=== PATIENT | female | born 1990 | race Caucasian/White ===

== ENCOUNTER 2021-07-20 08:02 | Emergency (ER) | payer OTHER, SELFPAY ==
[2021-07-20 08:11] VITALS: BP 116/84; PULSE 77; RESP 16; TEMP 36.5; O2SAT 99
--- NOTE | 2021-07-20 08:41 | ED.URI ---
HPI - URI/Sore Throat General Chief Complaint: Upper Respiratory Infection Stated Complaint: sore throat/swollen left gland Source: patient and RN notes reviewed Limitations: no limitations History of Present Illness HPI Narrative: The vaccinated patient, previously healthy, presents with sore throat. 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 She has 1/2-week history of sore throat, that was preceded by her third Covid vaccination two days before that, and she had an active negative rapid Covid test 2 days ago on Sunday [so patient declines repeat]. No fever, cough, earache; no loss of taste/smell, vomiting/diarrhea, S OB, rash, CP. Symptoms are mild worse with eating associated with adenopathy, she requests antibiotic for her upcoming trip. She reports a family [not an individual ]history of penicillin allergy Related Data Home Medications Medication Instructions Recorded Confirmed Iud 09/27/19 levothyroxine 75 mcg PO DAILY 09/27/19 07/20/21 lorazepam 0.5 mg PO TID PRN 09/27/19 07/20/21 sertraline 100 mg PO DAILY 09/27/19 07/20/21 Allergies Allergy/AdvReac Type Severity Reaction Status Date / Time No Known Allergies Allergy Verified 07/20/21 08:12 Review of Systems Review of Systems: General/Constitutional: No weight loss,fever Eyes: N0: Redness,discharge Ears/Nose/Throat: No: Epistaxis,ear discharge Respiratory: Denies: Hemoptysis Gastrointestinal: No Vomiting, Bleeding-rectal Skin: No Lumps, eruption Neurologic: No Focal Weakness,Sz Hematologic: Denies: Petechiae/Purpura Psychiatric: No: Suicida ideationl All Other Systems: Reviewed and Negative PMFSH Family History Family History (Updated 11/14/18 @ 12:31 by DOCTOR UNKNOWN) Grandparent Family history of mental disorder Depression Family history of cardiovascular disease Mother Depression Family history of malignant neoplasm of skin Father Hypertension Social History Social History Smoking status: Never smoker Second hand tobacco smoke exposure: No Alcohol intake: current Comments At time of signature, agree with nursing past medical, surgical, social and family history. There is no relevant family history pertinent to the presenting complaint Exam Narrative: General Appearance: Well appearing, Well nourished EYE: PERRLA, Conjunctiva clear Ears: Auditory canal normal, TM normal Nose: Rhinorrhea, Mucousal erythema Mouth/Throat: MM moist, Uvula midline, Pharyngeal erythema Neck: Supple, L>>R adenopathy Respiratory: No respiratory distress, Breath sounds equal, Clear to auscultation Cardiovascular: RRR, No JVD Musculoskeletal: Non tender, Normal strength Skin: Warm, Dry Neurological: A&O x3, CN II-XII intact Psychiatric: Normal mood, Normal affect Course Vital Signs Vital signs: Vital Signs Temperature 97.7 F 07/20/21 08:11 Pulse Rate 77 07/20/21 08:11 Respiratory Rate 16 07/20/21 08:11 Blood Pressure 116/84 07/20/21 08:11 Pulse Oximetry 99 07/20/21 08:11 Temperature 97.7 F 07/20/21 08:11 Pulse Rate 77 07/20/21 08:11 Respiratory Rate 16 07/20/21 08:11 Blood Pressure 116/84 07/20/21 08:11 Pulse Oximetry 99 07/20/21 08:11 MDM - URI/Sore Throat Lab Data Labs: Strep Screen Presumptive Negative *(Reference Range: Negative)* Discharge Plan Discharge Clinical Impression: Odynophagia Patient Disposition: Home, Self-Care Condition: Stable Instructions: Pharyngitis (ED) Prescriptions: New azithromycin 250 mg tablet See Rx Instructions .ROUTE .COMPLEX Qty: 6 RF: 0 lidocaine HCl [Lidocaine Viscous] 2 % solution 5 ml MUCOUS MEM QID PRN (Reason: pain) Qty: 100 RF: 0 No Action sertraline 100 mg tablet 100 mg PO DAILY RF: 0 levothyroxine 75 mcg tablet 75 mcg PO DAILY RF: 0 lorazepam 0.5 mg tablet
== END 2021-07-20 08:45 | disposition home or self-care (01) ==
PROVIDERS: Emergency Provider Emergency Medicine; PCP Nurse Practitioner Family
DX: R13.10 Dysphagia, unspecified (principal); E03.9 Hypothyroidism, unspecified; E28.2 Polycystic ovarian syndrome; F41.9 Anxiety disorder, unspecified; F32.9 Major depressive disorder, single episode, unspecified
CPT/HCPCS: 87081; 87880; 99213; G0463

== ENCOUNTER 2025-07-16 11:55 | Emergency (ER) | payer OTHER, SELFPAY ==
--- NOTE | ~2025-07-16 | US_ITS ---
US abdomen limited Indication: R Flank/lower abdominal pain, Eval Appendicitis Comparison: None Technique: Tran-scale and color Doppler images were obtained. Findings: Appendix not identified. No dilated bowel loops or free fluid IMPRESSION: The appendix is not identified Reviewed, dictated and finalized at location P.
--- NOTE | ~2025-07-16 | US_ITS ---
Examination: Ultrasound of the retroperitoneum including kidneys and bladder. Clinical History: R Flank/lower abdominal pain, eval hydro/kidney st . Comparison: None available. Findings: Right kidney: 12 cm. Normal echogenicity. No collecting system dilatation. No shadowing calculi. Left kidney: 12 cm. Normal echogenicity. No collecting system dilatation. No shadowing calculi. Urinary bladder: No wall thickening or focal abnormality. IMPRESSION: 1. No acute findings. Reviewed, dictated and finalized at location R. IMPRESSION: 1. No acute findings.
--- NOTE | ~2025-07-16 | US_ITS ---
EXAMINATION: US OB <= 14 weeks fetus DATE: 07/16/2025 14:09 INDICATION: Right lower quadrant pain. TECHNIQUE: Real-time transabdominal and transvaginal obstetric ultrasound. FINDINGS: The uterus measures 14.1 x 6.0 x 8.0. There is an intrauterine gestational sac, with pole identified. The crown rump length measures 4.11 cm, which correlates with a estimated gestational age of 11 weeks and 0 days. heart tones are identified measuring 171. Right ovary measures 3.7 x 2.1 x 3.2 cm. Color Doppler flow identified in the right ovary. There is a 1.4 x 0.8 x 1.2 cm anechoic structure in the right ovary possibly a dominant follicle. Left ovary measures 3.4 x 2.0 x 3.9 cm. Color Doppler flow identified in the left ovary. IMPRESSION: 1. Gallbladder angiogram with an estimated gestational age based on the current sonographic measurements of 11 weeks, 0 days 2. There is a 1.4 cm probable dominant follicle in the right ovary. 3. Otherwise, unremarkable study. If symptoms persist or worsen, consider a short-term follow-up study or additional imaging for further assessment. Reviewed, dictated and finalized at location Q. IMPRESSION: 1. Gallbladder angiogram with an estimated gestational age based on t he current sonographic measurements of 11 weeks, 0 days 2. There is a 1.4 cm probable dominant follicle in the right ovary. 3. Otherwise, unremarkable study. If symptoms persist or worsen, consider a short-term follow-up study or additio nal imaging for further assessment.
[2025-07-16 11:58] VITALS: BP 130/63; PULSE 91; RESP 17; TEMP 36.6; O2SAT 98
--- OUTSIDE RECORDS SUMMARY | 2025-07-16 12:04 | XMS_ITS | Clinical Summary ---
Author Organization [facility] Address [address] [place] [phone] Phone Care Team Providers Care Heavy Threader Name Role Phone Teodora Cuevas MD Primary Care Provider [phone] Allergies No known active allergies Medications fluocinonide (LIDEX) 0.05 % external solution Apply Twice a day to the scalp as needed 60 mL 08/05/20 21 Active levonorgestreL (Mirena) IUD Mirena 20 mcg/24 hours (6 yrs) 52 mg intrauterine device 04/06/20 17 Active azelastine 205.5 mcg (0.15 %) spray,non-aerosol azelastine 205.5 mcg (0.15 %) nasal spray USE 2 SPRAY(S) TWICE DAILY Active levothyroxine (SYNTHROID) 75 mcg tabletIndications: Other specified hypothyroidism Take 1 tablet (75 mcg total) by mouth daily 30 tablet 11/23/19 22 Active metFORMIN XR (GLUCOPHAGE XR) 500 mg 24 hr tabletIndications: PCOS (polycystic ovarian syndrome) Take 1 tablet (500 mg total) by mouth daily with breakfast Use as directed by MD with step-up dosaging 120 tablet 11/23/19 22 Active Rybelsus 3 mg tablet Not for DM, only for weight loss 07/24/20 22 Active tretinoin (RETIN-A) 0.05 % creamIndications:A cne, unspecified acne type Apply pea-sized amount to face at night 45 g 07/04/20 24 Active clindamycin (CLEOCIN T) 1 % lotion Apply to face daily in AM 60 mL 11 07/04/20 24 Active triamcinolone (KENALOG) 0.1 % ointmentIndication s:Arthropod bite, sequela Apply to itchy areas on body twice a day as needed. Do not use on face 180 g 3 07/04/20 24 Active spironolactone (ALDACTONE) 50 mg tabletIndications: Acne, unspecified acne type Take 2 tablets (100 mg total) by mouth nightly 60 tablet 07/14/20 24 Active LORazepam (ATIVAN) 0.5 mg tablet Take 1 tablet (0.5 mg total) by mouth daily as needed for anxiety 30 tablet 09/04/20 24 Active sertraline (ZOLOFT) 100 mg tablet Take 1 tablet (100 mg total) by mouth daily 30 tablet 02/28/20 25 Active Active Problems Problem Noted Date Diagnosed Date Panic attacks 09/21/2022 Sterilization 06/28/2022 Overview (06/28/2022): Added automatically from request for surgery [id number] Excessive daytime sleepiness 11/15/2020 ANSHUL (generalized anxiety disorder) 09/27/2020 Seasonal affective disorder 09/27/2020 Tympanostomy tube check 05/07/2018 Dysfunction of left eustachian tube 01/29/2018 Chronic tonsillitis 01/07/2018 Conductive hearing loss, unilateral 01/07/2018 History of gestational diabetes 11/28/2017 Acquired hypothyroidism 11/28/2017 Immunizations Immunization Administration Dates Next Due Influenza, Quadrivalent, Spl it, Preservative Free, Intramuscular 11/28/2017 Td, adsorbed 02/12/2013 Surgical History Surgery Date Site/Laterality Comments EAR TUBE REMOVAL 10/15/1998 - 10/14/1999 Bilateral WISDOM TOOTH EXTRACTION 10/15/2008 - 10/14/2009 Bilateral WISDOM TOOTH EXTRACTION Oral Surgery Tooth Extraction Stone Tooth - (Added by TW Conv) TYMPANOSTOMY TUBE PLACEMENT Ear Pressure Equalization Tube, Insertion, Bilaterally - (Added by TW Conv) TONSILLECTOMY 10/15/2017 - 10/14/2018 TONSILECTOMY, ADENOIDECTOMY, BILATERAL MYRINGOTOMY AND TUBES Medical History Medical History Date Comments Anxiety Thyroid disease Personal history of other di seases of the respiratory system History of sore throat - (Ad ded by TW Conv) Hypertrophy of tonsils Swelling of tonsil - (Added by TW Conv) Disorder of thyroid Thyroid trou ble - (Added by TW Conv) Family history of thyroid problem Family History Medical History Relation Name Comments Hypertension Father Heart disease Maternal Grandfather Obesity Maternal Grandmother Infertile Mother Thyroid disease Mother Glaucoma Paternal Grandmother Relation Name Status Comments Father Alive Maternal Grandfather Maternal Grandmother Mother Alive Paternal Grandmother Social History Tobacco Use Types Packs/Day Years Used Date Smoking Tobacco: Never Smokeless Tobacco: Never Alcohol Use Standard Drinks/Week Comments Yes 2 (1 standard drink = 0.6 oz pur e alcohol) AUDIT-C Answer Date Recorded Frequency of Alcohol Consumption Not on file 05/04/2021 Q2: How many drinks containi ng alcohol do you have on a typical day when you are drinking? 1 or 2 05/04/2021 Frequency of Binge Drinking Not on file 04/15 Comments No Sex and Gender Information Value Date Recorded Sex Assigned at Not on file Legal Sex Female 6:10 PM CLINICAL PSYCHIATRIST Gender Identity Female 09/08/2020 8:35 AM CLINICAL PSYCHIATRIST Sexual Orientation Straight 09/08/2020 8: 35 AM CLINICAL PSYCHIATRIST Obstetrics History Para Term AB IAB SAB Ectopic Multiple Livin g Live Births 1 1 1 1 1 Date Outcome GA Total Labor Labor/2nd/3rd Weight Sex Type Anes PTL Prudence A1 A5 Name Clin 2016 2.722 kg (6 lb) M Living Comments G1 2016 IOL for GDM and HTN Last Filed Vital Signs Vital Sign Reading Time Taken Comments Blood Pressure 116/60 06/27/2022 9:05 AM CDT Pulse 78 01/29/2018 8:42 AM CDT Temperature 36.9 C (98.5 F) 12/25/2017 1:46 PM CDT Respiratory Rate - - Oxygen Saturation 98% 12/25/2017 1:46 PM CDT Inhaled Oxygen Concentration - - Weight 114.3 kg (252 lb) 08/28/2022 12:36 PM CLINICAL PSYCHIATRIST Height 160 cm (5' 3) 12/21/2021 12:59 PM CLINICAL PSYCHIATRIST Body Mass Index 44.64 12/21/2021 12:59 PM CLINICAL PSYCHIATRIST Plan of Treatment Health Maintenance Due Date Last Done Comments Hepatitis C Screening 1991 Varicella Vaccines (1 of 2 - 13+ 2-dose series) 2004 Hepatitis B Screening 2009 HPV Vaccines (1 - 3-dose SCD M series) 2018 Cervical Cancer Screening 11/12/2018 11/12/2017 Depression Screening 12/25/2018 12/25/2017, 11/28/2017 Regular Well Visit/Exam 18-64 12/21/2022, 11/28/2017 Covid-19 Vaccine (3 - 2024-2 6 season) 2025 11/25/2020, 11/04/2020 Influenza Vaccine (#1) 2025 11/28/2017 DTaP/Tdap/Td Vaccine (2 - Td or Tdap) 02/06/2027 02/06/2017, 02/12/2013 Pneumococcal vaccine <65 Aged Out No longer eligible based on patient's age to complete this topic Procedures Procedure Name Priority Date/Time Associated Diagnosis Comments PAP SMEAR WITH HPV Routine 11/12/2017 from Last 3 Months or Most Recently Relevant to Health Maintenance Results * PAP SMEAR WITH HPV (11/12/2017) Pap smear Normal Historical Provider MD HEALTH MAINTENANCE Final Result from Last 3 Months or Most Recently Relevant to Health Maintenance Insurance EMPLOYEES [employer] HMO/PPO Address: [facility] [address] [place] [address] [facility] [employer]YEES [employer] HMO/PPO Address: [address] [address] [employer] [facility] [employer]/PPO Address: [id number] [place] [address] Care Teams Heavy Threader Relationship Specialty Start Date End Date Teodora Cuevas MD [address] [place] [address] PCP - General Family Medicine 09/06/22
--- OUTSIDE RECORDS SUMMARY | 2025-07-16 12:04 | XMS_ITS | Clinical Summary ---
Author Organization [facility] Care Team Providers Care Angular Developer Name Role Phone Unavailable Primary Care Provider Unavailabl e Allergies No known active allergies Medications Etonogestrel-Et hinyl Estradiol (NUVARING) 0.12-0.015 MG/24HR RING by Vaginal route every 21 days. Active Multiple Vitamins-Minera ls (WOMENS ONE DAILY PO) Take by mouth. Active Cholecalciferol (VITAMIN D PO) Take by mouth. Active omeprazole (PRILOSEC) 40 MG CAPSULE DELAYED RELEASE Take by mouth. Active escitalopram (LEXAPRO) 10 MG Tablet Take by mouth. Active Active Problems Problem Noted Date Diagnosed Date ANSHUL (generalized anxiety disorder) Gastritis Immunizations Immunization Administration Dates Next Due TD VACCINE 02/12/2013 Social History Tobacco Use Types Packs/Day Years Used Date Smoking Tobacco: Never Assessed Comments Unknown Sex and Gender Information Value Date Recorded Sex Assigned at Not on file Legal Sex Female 8:32 PM CDT Gender Identity Not on file Sexual Orientation Not on file Plan of Treatment Health Maintenance Due Date Last Done Comments Hepatitis C Virus (HCV) Screening 1991 TdaP Immunization 1991 Hepatitis B Immunization (1 of 3 - 19+ 3-dose series) 2010 Pap Smear 2012 Human Papillomavirus (HPV) Immunization (1 - 3-dose SCDM series) 2018 Cervical Cancer Screening (CCS) 2021 HPV/Cotest 2021 Influenza Immunization (#1) 2025 SARS-COV-2 Immunization (2023- season) 2025 Respiratory Syncytial Virus (RSV) Immunization (Adult) (1 - 1-dose 75+ series) 2066 DTaP/Tdap/Td Immunization Discontinued 02/12/2013 Meningococcal Immunization (ACWY) Aged Out No longer eligible based on patient's age to complete this topic Pneumococcal Immunization Combined Aged Out No longer eligible based on patient's age to complete this topic Rotavirus Immunization Aged Out No lo nger eligible based on patient's age to complete this topic
--- OUTSIDE RECORDS SUMMARY | 2025-07-16 12:04 | XMS_ITS | Clinical Summary ---
Author Organization [facility] Address [address] [place] [address] Care Team Providers Care Clearing Hand Name Role Phone Teodora Cuevas MD Primary Care Provider [phone] Allergies No known active allergies Medications sertraline (ZOLOFT) 25 MG tablet Take 3 tablets (75 mg total) by mouth daily. Active metFORMIN ER, MOD, (GLUMETZA) 500 MG TABLET SR 24 HR 24 hr tablet Take 1 tablet (500 mg total) by mouth daily. Active levothyroxine (SYNTHROID) 75 MCG tablet Take 1 tablet (75 mcg total) by mouth every morning. Active spironolactone (ALDACTONE) 100 MG tablet Take 1 tablet (100 mg total) by mouth daily. Active pantoprazole EC (PROTONIX) 40 MG tablet Take 1 tablet (40 mg total) by mouth daily. 14 tablet 08/02/2024 Active lidocaine viscous (XYLOCAINE) 2 % solution Take 5 mLs by mouth every 4 (four) hours as needed for Pain. 100 mL 08/02/2024 Active Social History Tobacco Use Types Packs/Day Years Used Date Smoking Tobacco: Never Smokeless Tobacco: Never Tobacco Cessation:Counseling Given: Not Answered Alcohol Use Standard Drinks/Week Comments Not Currently 0 (1 standard drink = 0.6 oz pur e alcohol) Comments No Sex and Gender Information Value Date Recorded Sex Assigned at Not on file Legal Sex Female 7:49 PM CDT Gender Identity Not on file Sexual Orientation Not on file Last Filed Vital Signs Vital Sign Reading Time Taken Comments Blood Pressure 140/78 08/02/2024 7:59 PM CDT Pulse 89 08/02/2024 7:59 PM CDT Temperature 36.5 C (97.7 F) 08/02/2024 7:59 PM CDT Respiratory Rate 16 08/02/2024 7:59 PM CDT Oxygen Saturation 100% 08/02/2024 7:59 PM CDT Inhaled Oxygen Concentration - - Weight 120.4 kg (265 lb 6.4 oz) 08/02/2024 7:59 PM CDT Height 160 cm (5' 3) 08/02/2024 7:59 PM CDT Body Mass Index 47.01 08/02/2024 7:59 PM CDT Plan of Treatment Health Maintenance Due Date Last Done Comments Annual Physical 1994 Hepatitis C 2009 Hepatitis B Vaccines (1 of 3 - 19+ 3-dose series) 2010 HPV Vaccines (1 - 3-dose SCDM series) 2018 Cervical Cancer Screening Pap with HPV Testing (Age 30 to 64) Every 5 Years 2021 COVID-19 Vaccine ( season) 2025 07/28/2023, 07/14/2021, 11/25/2020, Additional history exists Influenza Adult (#1) 2025 07/28/2023, 07/19/2022, 11/28/2017 Cervical Cancer Screening Pap Smear (Age 30 to 64) Every 3 Years 08/10/2026 08/10/2023 Cervical Cancer Screening with HPV 08/10/2026 DTaP, Tdap and Td Vaccines (2 - Td or Tdap) 02/06/2027 02/06/2017, 02/12/2013 Meningococcal B Vaccine Aged Out No l onger eligible based on patient's age to complete this topic Meningococcal Vaccine Aged Out No lisa carolyn eligible based on patient's age to complete this topic Pneumococcal Vaccine: Pediatrics (0 to 5 Years) and At-Risk Patients (6 to 49 Years) Aged Out No longer eligible based on patient's age to complete this topic RSV Immunizations Under 20 Months Aged Out No longer eligible based on patient's age to complete this topic Insurance [facility] Care Teams Clearing Hand Relationship Specialty Start Date End Date Teodora Cuevas MD [address] [place] [address] PCP - General FAMILY PRACTICE 08/02/24
--- OUTSIDE RECORDS SUMMARY | 2025-07-16 12:05 | XMS_ITS | Clinical Summary ---
Author Organization [facility] Address [address] [place] [phone] Phone Care Team Providers Care Senior Investigator Name Role Phone Unavailable Primary Care Provider Unavailabl e Social History Tobacco Use Types Packs/Day Years Used Date Smoking Tobacco: Never Assessed Comments Unknown Sex and Gender Information Value Date Recorded Sex Assigned at Not on file Legal Sex Female 8:26 AM CDT Gender Identity Not on file Sexual Orientation Not on file Plan of Treatment Health Maintenance Due Date Last Done Comments DTAP/TDAP/TD VACCINES (1 - Tdap) 2010 HEPATITIS B VACCINES (1 of 3 - 19+ 3-dose series) 10/16 HPV/Cotest (21-29) 2012 HPV VACCINES (1 - 3-dose SCDM series) 2018 CERVICAL CANCER SCREENING 2021 HPV/Cotest (30-65) 2021 PAP SMEAR 2021 INFLUENZA VACCINE (#1) 2025
[2025-07-16 12:10] VITALS: BP 130/63; PULSE 85; RESP 14; TEMP 36.6; O2SAT 97
[2025-07-16 12:24] LABS: Hematocrit 36.3 % (37.0-47.0); Hemoglobin 11.7 g/dL (12.0-15.0); Immature Granulocyte Percent A 0.6 % (0-0.5); Lymphocytes Absolute Auto 2.23 K/mm3 (0.9-3.2); Mean Corpuscular HGB Conc 32.2 g/dl (32-36); Mean Corpuscular Hemoglobin 28.1 pg (26-34); Mean Corpuscular Volume 87.3 fl (80-100); Nucleated Red Blood Cells Absolute Auto 0.000 K/mm3 (0.0-0.012); Nucleated Red Blood Cells Perc 0.0 % (0.0-0.2); Platelet Count Result 288 k/mm3 (150-375); Red Blood Count 4.16 M/mm3 (4.2-5.4); White Blood Count 11.5 K/mm3 (4.5-10.0)
--- OUTSIDE RECORDS SUMMARY | 2025-07-16 12:39 | XMS_ITS | Clinical Summary ---
Author Organization [facility] Address [address] [place] [address] Care Team Providers Care Stock Preparer Name Role Phone Teodora Cuevas MD Primary Care Provider [phone] Allergies No known active allergies Medications sertraline [...] patient's age to complete this topic Insurance [facility] Care Teams Stock Preparer Relationship Specialty Start Date End Date Teodora Cuevas MD [address] [place] [address] PCP - General FAMILY PRACTICE 08/02/24
--- OUTSIDE RECORDS SUMMARY | 2025-07-16 12:39 | XMS_ITS | Clinical Summary ---
Author Organization [facility] Address [address] [place] [phone] Phone Care Team Providers Care Plasma Specialist Name Role Phone Unavailable Primary Care Provider [...]
--- OUTSIDE RECORDS SUMMARY | 2025-07-16 12:39 | XMS_ITS | Clinical Summary ---
Author Organization [facility] Address [address] [place] [phone] Phone Care Team Providers Care Compliance Clerk Name Role Phone Teodora Cuevas MD Primary Care Provider [phone] Allergies No known active allergies Medications fluocinonide [...] (06/28/2022): Added automatically from request for surgery [id number] Excessive daytime sleepiness 11/15/2020 ANSHUL (generalized anxiety [...] WISDOM TOOTH EXTRACTION Oral Surgery Tooth Extraction [place] Tooth - (Added by TW Conv) TYMPANOSTOMY [...] on file Legal Sex Female 6:10 PM LAWN MOWER OPERATOR Gender Identity Female 09/08/2020 8:35 AM LAWN MOWER OPERATOR Sexual Orientation Straight 09/08/2020 8: 35 AM LAWN MOWER OPERATOR Obstetrics History Para Term AB IAB SAB [...] 114.3 kg (252 lb) 08/28/2022 12:36 PM LAWN MOWER OPERATOR Height 160 cm (5' 3) 12/21/2021 12:59 PM LAWN MOWER OPERATOR Body Mass Index 44.64 12/21/2021 12:59 PM LAWN MOWER OPERATOR Plan of Treatment Health Maintenance Due Date [...] Recently Relevant to Health Maintenance Insurance EMPLOYEES [employer] Care Teams Compliance Clerk Relationship Specialty Start Date End Date Teodora Cuevas MD [address] [place] [address] PCP - General Family Medicine 09/06/22
--- OUTSIDE RECORDS SUMMARY | 2025-07-16 12:39 | XMS_ITS | Clinical Summary ---
Author Organization [facility] Care Team Providers Care C D Still Operator Name Role Phone Unavailable Primary Care Provider [...]
[2025-07-16 12:43] LABS: Alanine Aminotransferase 18 U/L (6-35); Albumin Level 4.2 g/dL (3.5-5.1); Alkaline Phosphatase 81 U/L (38-126); Anion Gap 10 mmol/L (4-12); Aspartate Amino Transferase 25 U/L (14-36); Bilirubin,Total 0.2 mg/dL (0.2-1.3); Blood Urea Nitrogen 6 mg/dL (7-17); Calcium 9.3 mg/dL (8.4-10.2); Carbon Dioxide 23 mmol/L (22-30); Chloride 103 mmol/L (98-107); Estimated CRCL calculation 160 ml/min; Estimated Glomerular Filt Rate > 60; Glucose 96 mg/dL (65-110); Lipase 133 U/L (23-300); Potassium 3.9 mmol/L (3.4-5.0); Sodium 136 mmol/L (137-145); Total Protein 8.1 g/dL (6.3-8.2)
--- NOTE | 2025-07-16 13:04 | ED.GENADULT ---
HPI - General Adult General Chief complaint: Abdominal Pain Stated complaint: right side pain, 11 weeks preg Time Seen by Provider: 07/16/25 12:12 History of Present Illness HPI narrative: This is a 34- at 11 weeks gestation presenting for right-sided abdominal pain. Patient says for last 5 days she has had right flank/lower back pain radiating to her right groin. The pain is mild in intensity. She has been taking Tylenol with minimal relief. Pain has not been going away which is why she sought care in the emergency department. Patient does not have any fevers chills chest pain abdominal pain urinary symptoms. No history of kidney stones. No vaginal bleeding or discharge. She is says she has had a temperature of 99.3 at home. Patient notes that she has been moving furniture and other objects around the house for a neighborhood cleanout. She does not typically lift anything or do any physical activity. Patient has already been prescribed antibiotics for possible UTI and is when taking them as directed. She will finish the course tomorrow. Last week she had had some dysuria which was why she was prescribed the antibiotics. Related Data Home Medications ?Medication ?Instructions ?Recorded ?Confirmed ?Last Taken ?Type Iud 09/27/19 Unknown History levothyroxine 75 mcg tablet 75 mcg PO DAILY 09/27/19 07/20/21 Unknown History lorazepam 0.5 mg tablet 0.5 mg PO TID PRN Anxiety 09/27/19 07/20/21 Unknown History sertraline 100 mg tablet 100 mg PO DAILY 09/27/19 07/20/21 Unknown History Allergies Allergy/AdvReac Type Severity Reaction Status Date / Time No Known Allergies Allergy Verified 07/16/25 11:56 [facility] Family History Family History Grandparent Family history of mental disorder Depression Family history of cardiovascular disease Mother Depression Family history of malignant neoplasm of skin Father Hypertension Social History Social History Smoking status: Never smoker Second hand tobacco smoke exposure: No Alcohol intake: current Exam Narrative: APPEARANCE: No apparent distress. Head: atraumatic. EYES: EOMI, NOSE: Atraumatic NECK: Trachea midline RESPIRATORY: No increased rate of breathing clear auscultation CARDIOVASCULAR: RRR, ABDOMINAL: Obese, soft nontender no guarding rebound no CVA tenderness MUSCULOSKELETAl: No obvious deformities NEURO: Alert. Moving /4 extremities SKIN:: Warm, dry. Normal color PSYCHIATRIC: Normal affect Course Vital Signs Vital signs: Vital Signs Temperature 97.9 F 07/16/25 11:58 Pulse Rate 91 07/16/25 11:58 Respiratory Rate 17 07/16/25 11:58 Blood Pressure 130/63 07/16/25 11:58 Pulse Oximetry 98 07/16/25 11:58 Oxygen Delivery Room Air 07/16/25 11:58 Temperature 97.9 F 07/16/25 12:10 Pulse Rate 85 07/16/25 12:10 Respiratory Rate 14 07/16/25 12:10 Blood Pressure 130/63 07/16/25 12:10 Pulse Oximetry 97 07/16/25 12:10 Oxygen Delivery Room Air 07/16/25 11:58 Medical Decision Making MDM Narrative Medical decision making narrative: -Course: 34-year-old woman presenting with right-sided abdominal pain. Patient is well appearing overall although she is very anxious. Her vital signs are stable. Her physical exam is unremarkable. Due to her I did obtain ultrasounds of her right kidney looking for hydronephrosis or evidence of kidney stones. There was no hydronephrosis or stone shadowing. We did also obtain a right lower quadrant abdominal ultrasound which could not visualize the appendix. Given her 5 days of symptoms and overall presentation I think appendicitis is unlikely. Ob ultrasound showed a live fetus with normal heart rate. She does have a corpus luteum cyst on the right ovary which she was aware of. Unclear if that is causing her pain or not. Pain may just be due to MSK pain from her lifting furniture over the last several days or possible round ligament pain. Results were discussed with patient and I made it clear that I do not have exact etiology of her pain. She will follow-up closely with her OBGYN and return if her condition is to worsen or she develops any new symptoms. -DDX includes but is not limited to: Muscle strain, round ligament pain, kidney stone, appendicitis, ovarian cyst Vital Signs Vital Signs: Vital Signs Temperature 97.9 F 07/16/25 11:58 Pulse Rate 91 07/16/25 11:58 Respiratory Rate 17 07/16/25 11:58 Blood Pressure 130/63 07/16/25 11:58 Pulse Oximetry 98 07/16/25 11:58 Oxygen Delivery Room Air 07/16/25 11:58 Temperature 97.9 F 07/16/25 12:10 Pulse Rate 85 07/16/25 12:10 Respiratory Rate 14 07/16/25 12:10 Blood Pressure 130/63 07/16/25 12:10 Pulse Oximetry 97 07/16/25 12:10 Oxygen Delivery Room Air 07/16/25 11:58 Lab Data 07/16/25 12:16 07/16/25 12:16 Labs: Lab Results 07/16/25 07/16/25 07/16/25 Range/Units 12:16 13:53 13:54 WBC 11.5 H (4.5-10.0) K/mm3 RBC 4.16 L (4.2-5.4) M/mm3 Hgb 11.7 L (12.0-15.0) g/dL Hct 36.3 L (37.0-47.0) % MCV 87.3 (80-100) fl MCH 28.1 (26-34) pg MCHC 32.2 (32-36) g/dl RDW 13.1 (11.5-14.5) % Plt Count 288 (150-375) k/mm3 MPV 8.5 (7.4-10.4) fl Immature Gran % (Auto) 0.6 H (0-0.5) % Neut % (Auto) 71.7 (45.5-73.1) % Lymph % (Auto) 19.3 (18.3-44.2) % [place] % (Auto) 7.5 (2.6-8.5) % Eos % (Auto) 0.6 (0-4.4) % Baso % (Auto) 0.3 (0.2-1.2) % Lymph # (Auto) 2.23 (0.9-3.2) K/mm3 [place] # (Auto) 0.9 H (0.1-0.6) K/mm3 Eos # (Auto) 0.1 (0-0.3) K/mm3 Baso # (Auto) 0.0 (0.0-0.1) K/mm3 Abs Immat Gran (auto) 0.07 H (0.00-0.031) K/mm3 Absolute Neuts (auto) 8.3 H (1.3-6.7) K/mm3 Absolute Nucleated RBC 0.000 (0.0-0.012) K/mm3 Nucleated RBC % 0.0 (0.0-0.2) % Sodium 136 L (137-145) mmol/L Potassium 3.9 (3.4-5.0) mmol/L Chloride 103 (98-107) mmol/L Carbon Dioxide 23 (22-30) mmol/L Anion Gap 10 (4-12) mmol/L BUN 6 L (7-17) mg/dL Creatinine 0.53 L (0.7-1.0) mg/dL Estim Creat Clear Calc 160 ml/min Estimated GFR > 60 (59 - ) Glucose 96 (65-110) mg/dL Calcium 9.3 (8.4-10.2) mg/dL Total Bilirubin 0.2 (0.2-1.3) mg/dL AST 25 (14-36) U/L ALT 18 (6-35) U/L Alkaline Phosphatase 81 (38-126) U/L Total Protein 8.1 (6.3-8.2) g/dL Albumin 4.2 (3.5-5.1) g/dL Lipase 133 (23-300) U/L Urine Color Yellow (Yellow) Urine Appearance Cloudy H (Clear) Urine pH 6.5 (5.0-9.0) Ur Specific [place] 1.008 (1.001-1.035) Urine Protein Negative (Negative) mg/dL Urine Glucose (UA) Negative (Negative) mg/dL Urine Ketones Negative (Negative) mg/dL Ur Blood (Man) Negative (Negative) Urine Nitrate Negative (Negative) Urine Bilirubin Negative (Negative) Urine Urobilinogen 0.2 (<2.0) mg/dL Leukocyte Esterase Rfl 1+ H (Negative) ADDIE/UL Urine RBC 0-2 (0-2) /hpf Urine WBC 11-20 H (0-3) /hpf Ur Squamous Epith Cells Moderate (Few) /hpf Urine Bacteria Rare /hpf Urine Casts 0-2 POC Urine HCG, Qual Positive (Negative) Discharge Plan Discharge Clinical Impression: Abdominal pain Patient Disposition: Home Condition: Stable Instructions: Antibiotic Form, Abdominal Pain (ED) Additional Instructions: He was seen in the emergency department for abdominal pain. We did not determine exact cause of your pain. Please follow-up closely with your OBGYN. Use Tylenol for pain. If you develop any new symptoms like fevers, increasing abdominal pain, vaginal bleeding or discharge please return to ED for re-evaluation. Patient Language: Chinese Prescriptions: No Action sertraline 100 mg tablet 100 mg PO DAILY levothyroxine 75 mcg tablet 75 mcg PO DAILY lorazepam 0.5 mg tablet 0.5 mg PO TID PRN (Reason: Anxiety) Iud azithromycin 250 mg tablet See Rx Instructions .ROUTE .COMPLEX Qty: 6 0RF Rx Instructions: take 500 mg today (day 1), then 250 mg for 4 days (days 2-5) lidocaine HCl [Lidocaine Viscous] 2 % solution 5 ml MUCOUS MEM QID PRN (Reason: pain) Qty: 100 0RF Rx Instructions: Gargle and spit Follow-up/Referrals: Teodora Cuevas MD [Primary Care Provider, Family Practice] - 3 Days Referral Note: Abdominal pain
[2025-07-16 13:55] LABS: BEDSIDEPREGUCG Positive (Negative)
[2025-07-16 14:21] LABS: Add Urine Microscopic? YES; Appearance Urine Cloudy (Clear); Glucose Urine UA Negative (Negative); Leukocyte Esterase Ur 1+ LEU/UL (Negative); Nitrate Urine Negative (Negative); Non Pathogenic Casts 0-2; Specific Grav Ur 1.008 (1.001-1.035)
[2025-07-16 15:39] VITALS: BP 130/69; PULSE 87; RESP 16; O2SAT 98
== END 2025-07-16 15:39 | disposition home or self-care (01) ==
PROVIDERS: Emergency Medicine; Emergency Provider Emergency Medicine; PCP Family Medicine
DX: O26.891 Other specified pregnancy related conditions, first trimester (principal); R10.31 Right lower quadrant pain; Z3A.11 11 weeks gestation of pregnancy
CPT/HCPCS: 36415; 76705; 76770; 76801; 80053; 81001; 81025; 83690; 85025; 99284

== ENCOUNTER 2025-07-20 09:10 | Emergency (ER) | payer OTHER, SELFPAY ==
--- NOTE | ~2025-07-20 | US_ITS ---
EXAMINATION: US OB <= 14 weeks fetus DATE: 07/20/2025 11:26 INDICATION: Vaginal bleeding. Positive test. TECHNIQUE: Real-time transabdominal and transvaginal obstetric ultrasound. FINDINGS: The uterus measures 11.5 x 6.0 x 7.6. There is an intrauterine gestational sac, with pole identified. The crown rump length measures 5.2 cm, which correlates with a estimated gestational age of 11 weeks and 6 days. heart tones are identified measuring 171. Probable small subchorionic hem orrhage. Right ovary measures 4.4 x 2.7 x 3.0 cm. Left ovary was not visualized. IMPRESSION: 1. Single live uterine at 11 weeks and 6 days by current sonographic measurements. 2. There is a small probable subchorionic hemorrhage. A short-term follow-up OB ultrasound and serial beta hCGs is recommended. Reviewed, dictated and finalized at location Q.
[2025-07-20 09:23] VITALS: BP 171/82; PULSE 95; RESP 17; TEMP 36.8; O2SAT 98
--- OUTSIDE RECORDS SUMMARY | 2025-07-20 09:48 | XMS_ITS | Clinical Summary ---
Author Organization [facility] Address [address] [place] [address] Phone Care Team Providers Care Canvas Goods Supervisor Name Role Phone Teodora Cuevas MD Primary Care Provider [phone] Allergies No known active allergies Medications fluocinonide [...] (06/28/2022): Added automatically from request for surgery [id number] Excessive daytime sleepiness 11/15/2020 ANSHUL (generalized anxiety [...] WISDOM TOOTH EXTRACTION Oral Surgery Tooth Extraction [place] Tooth - (Added by TW Conv) TYMPANOSTOMY [...] on file Legal Sex Female 6:10 PM SEBD TEACHER Gender Identity Female 09/08/2020 8:35 AM SEBD TEACHER Sexual Orientation Straight 09/08/2020 8: 35 AM SEBD TEACHER Obstetrics History Para Term AB IAB SAB [...] 114.3 kg (252 lb) 08/28/2022 12:36 PM SEBD TEACHER Height 160 cm (5' 3) 12/21/2021 12:59 PM SEBD TEACHER Body Mass Index 44.64 12/21/2021 12:59 PM SEBD TEACHER Plan of Treatment Health Maintenance Due Date [...] Recently Relevant to Health Maintenance Insurance EMPLOYEES [employer] H[employer]/PPO Address: [facility] [id number] [place] [address] [facility] EM[employer]OYEES [employer] H[employer]/PPO Address: [address] [address] [employer] Address: [id number] [place] [address] Care Teams Canvas Goods Supervisor Relationship Specialty Start Date End Date Teodora Cuevas MD [address] [place] [address] PCP - General Family Medicine 09/06/22
--- OUTSIDE RECORDS SUMMARY | 2025-07-20 09:48 | XMS_ITS | Clinical Summary ---
Author Organization [facility] Address [address] [place] [phone] Phone Care Team Providers Care Passenger Service Representative Name Role Phone Unavailable Primary Care Provider [...]
--- OUTSIDE RECORDS SUMMARY | 2025-07-20 09:48 | XMS_ITS | Clinical Summary ---
Author Organization [facility] Care Team Providers Care Mathematics Department Chair Name Role Phone Unavailable Primary Care Provider [...]
[2025-07-20 10:27] LABS: Hematocrit 36.5 % (37.0-47.0); Hemoglobin 11.8 g/dL (12.0-15.0); Immature Granulocyte Percent A 0.7 % (0-0.5); Lymphocytes Absolute Auto 1.71 K/mm3 (0.9-3.2); Mean Corpuscular HGB Conc 32.3 g/dl (32-36); Mean Corpuscular Hemoglobin 27.9 pg (26-34); Mean Corpuscular Volume 86.3 fl (80-100); Nucleated Red Blood Cells Absolute Auto 0.000 K/mm3 (0.0-0.012); Nucleated Red Blood Cells Perc 0.0 % (0.0-0.2); Platelet Count Result 272 k/mm3 (150-375); Red Blood Count 4.23 M/mm3 (4.2-5.4); White Blood Count 12.1 K/mm3 (4.5-10.0)
--- NOTE | 2025-07-20 10:38 | ED_ITS ---
HPI - General Adult General Chief complaint: Vaginal Bleeding Stated complaint: 11 weeks preg, bleeding passing clots Time Seen by Provider: 07/20/25 09:57 History of Present Illness HPI narrative: Patient is a 34-year-old female who is a at 11 weeks in gestation with known IUP who presents ER with vaginal bleeding. Began this morning dark purple clots as well as some bright red blood. No cramping or pain. Has a known corpus luteal cyst. No fevers or chills or sweats. She reports her blood type is A negative. She sees Dr. Marcum. Related Data Home Medications ?Medication ?Instructions ?Recorded ?Confirmed ?Last Taken ?Type Iud 09/27/19 Unknown History levothyroxine 75 mcg tablet 75 mcg PO DAILY 09/27/19 1 Unknown History lorazepam 0.5 mg tablet 0.5 mg PO TID PRN Anxiety 07/20/21 Unknown History sertraline 100 mg tablet 100 mg PO DAILY 09/27/1904/04 Unknown History Allergies Allergy/AdvReac Type Severity Reaction Status Date / Time No Known Allergies Allergy Verified 07/16/25 11:56 Review of Systems 2 Review of Systems: All systems reviewed & are unremarkable except as noted in HPI and below Constitutional: Constitutional: Reports no additional constitutional complaints ENT: Reports system reviewed and no additional complaints, except as documented Cardiovascular: Cardiovascular: Reports no additional cardiovascular complaints Respiratory: Respiratory: Reports no additional respiratory complaints Gastrointestinal: Gastrointestinal: Reports no additional gastrointestinal complaints Genitourinary: Genitourinary: Reports no additional female genitourinary complaints [facility] Past Medical History Medical History (Updated 07/20/25 @ 12:15 by Cristino Hassan MD) Hyperlipidemia Hypothyroidism Family History Family History Grandparent Family history of mental disorder Depression Family history of cardiovascular disease Mother Depression Family history of malignant neoplasm of skin Father Hypertension Social History Social History Smoking status: Never smoker Second hand tobacco smoke exposure: No Alcohol intake: current Exam 2 Narrative: GENERAL: Well-appearing, morbidly obese, and in no acute distress. HEAD: Normocephalic, atraumatic. ENT: Mucous membranes moist. CHEST: Clear to auscultation. No respiratory distress. HEART: Regular rate and rhythm. Normal peripheral pulses. ABDOMEN: Soft, nontender, nondistended. : Normal external genitalia. Scant blood mixed with mucus on exam. Bimanual with closed cervical os as it cannot be visualized due to redundant vaginal tissue. EXTREMITIES: Normal range of motion. No edema. SKIN: Warm, dry, no rash. NEURO: Alert and oriented x3. PSYCH: Normal mood and affect. Course Course Emergency Course: Patient educated on blood and imaging results. Diagnosed with a subchorionic hemorrhage and threatened miscarriage. Ob consulted and she should follow up tomorrow morning at 9:00 a.m. for further evaluation. Patient is A negative and will receive 1 dose of RhoGAM. Vital Signs Vital signs: Vital Signs Temperature 98.2 F 07/20/25 09:23 Pulse Rate 95 07/20/25 09:23 Respiratory Rate 17 07/20/25 09:23 Blood Pressure 171/82 H 07/20/25 09:23 Pulse Oximetry 98 07/20/25 09:23 Oxygen Delivery Room Air 07/20/25 09:23 Temperature 98.2 F 07/20/25 09:23 Pulse Rate 95 07/20/25 09:23 Respiratory Rate 17 07/20/25 09:23 Blood Pressure 171/82 H 07/20/25 09:23 Pulse Oximetry 98 07/20/25 09:23 Oxygen Delivery Room Air 07/20/25 09:23 Medical Decision Making Vital Signs Vital Signs: Vital Signs Temperature 98.2 F 07/20/25 09:23 Pulse Rate 95 07/20/25 09:23 Respiratory Rate 17 07/20/25 09:23 Blood Pressure 171/82 H 07/20/25 09:23 Pulse Oximetry 98 07/20/25 09:23 Oxygen Delivery Room Air 07/20/25 09:23 Temperature 98.2 F 07/20/25 09:23 Pulse Rate 95 07/20/25 09:23 Respiratory Rate 17 07/20/25 09:23 Blood Pressure 171/82 H 07/20/25 09:23 Pulse Oximetry 98 07/20/25 09:23 Oxygen Delivery Room Air 07/20/25 09:23 Lab Data 07/20/25 10:19 07/20/25 10:19 Labs: Lab Results 07/20/25 07/20/25 Range/Units 10:19 10:29 WBC 12.1 H (4.5-10.0) K/mm3 RBC 4.23 (4.2-5.4) M/mm3 Hgb 11.8 L (12.0-15.0) g/dL Hct 36.5 L (37.0-47.0) % MCV 86.3 (80-100) fl MCH 27.9 (26-34) pg MCHC 32.3 (32-36) g/dl RDW 13.2 (11.5-14.5) % Plt Count 272 (150-375) k/mm3 MPV 8.6 (7.4-10.4) fl Immature Gran % (Auto) 0.7 H (0-0.5) % Neut % (Auto) 79.3 H (45.5-73.1) % Lymph % (Auto) 14.1 L (18.3-44.2) % [place] % (Auto) 4.9 (2.6-8.5) % Eos % (Auto) 0.7 (0-4.4) % Baso % (Auto) 0.3 (0.2-1.2) % Lymph # (Auto) 1.71 (0.9-3.2) K/mm3 [place] # (Auto) 0.6 (0.1-0.6) K/mm3 Eos # (Auto) 0.1 (0-0.3) K/mm3 Baso # (Auto) 0.0 (0.0-0.1) K/mm3 Abs Immat Gran (auto) 0.08 H (0.00-0.031) K/mm3 Absolute Neuts (auto) 9.6 H (1.3-6.7) K/mm3 Absolute Nucleated RBC 0.000 (0.0-0.012) K/mm3 Nucleated RBC % 0.0 (0.0-0.2) % PT 13.1 (11.1-14.7) Seconds INR 1.0 APTT 24.6 (22.3-36.8) Seconds Sodium 134 L (137-145) mmol/L Potassium 3.5 (3.4-5.0) mmol/L Chloride 103 (98-107) mmol/L Carbon Dioxide 22 (22-30) mmol/L Anion Gap 9 (4-12) mmol/L BUN 6 L (7-17) mg/dL Creatinine 0.49 L (0.7-1.0) mg/dL Estim Creat Clear Calc 185 ml/min Estimated GFR > 60 (59 - ) Glucose 137 H (65-110) mg/dL Calcium 9.0 (8.4-10.2) mg/dL Total Bilirubin 0.2 (0.2-1.3) mg/dL AST 23 (14-36) U/L ALT 19 (6-35) U/L Alkaline Phosphatase 78 (38-126) U/L Total Protein 7.6 (6.3-8.2) g/dL Albumin 4.0 (3.5-5.1) g/dL Beta HCG, Quant 46188.00 mIU/ML Urine Color Light red H (Yellow) Urine Appearance Sl cloudy (Clear) Urine pH 6.0 (5.0-9.0) Ur Specific [place] 1.015 (1.001-1.035) Urine Protein 2+ H (Negative) mg/dL Urine Glucose (UA) Negative (Negative) mg/dL Urine Ketones Negative (Negative) mg/dL Ur Blood (Man) 3+ H (Negative) Urine Nitrate Negative (Negative) Urine Bilirubin Negative (Negative) Urine Urobilinogen 0.2 (<2.0) mg/dL Add Ur Microanalysis Yes Leukocyte Esterase Rfl 1+ H (Negative) ADDIE/UL Urine RBC >100 H (0-2) /hpf Urine WBC 6-10 H (0-3) /hpf Ur Squamous Epith Cells Moderate H (Few) /hpf Urine Bacteria Rare (None) /hpf Blood Type A Negative Antibody Screen Negative Screen Not Reportable Baby's Blood Type Not Reportable Baby's WARNER Not Reportable Doses of RhIg Required 1 Imaging Data Radiologist's impression: ITS Impressions Ultrasound 07/20/25 11:37 IMPRESSION: 1. Single live uterine at 11 weeks and 6 days by current sonographic measurements. 2. There is a small probable subchorionic hemorrhage. A short-term follow-up OB ultrasound and serial beta hCGs is recommended. Discharge Plan Discharge Clinical Impression: Subchorionic hemorrhage, Threatened miscarriage Patient Disposition: Home Condition: Stable Instructions: Threatened Miscarriage (ED), Subchorionic Hemorrhage (ED) Additional Instructions: You need to follow-up with your OB tomorrow morning at 9:00 a.m.. They are expecting you. Return the ER if your bleeding through 1 pad an hour for 3 continuous hours, you develop severe lower abdominal pain, or you lose consciousness. You did receive RhoGAM due to the fact that your a negative. Patient Language: Tamazight Prescriptions: No Action sertraline 100 mg tablet 100 mg PO DAILY levothyroxine 75 mcg tablet 75 mcg PO DAILY lorazepam 0.5 mg tablet 0.5 mg PO TID PRN (Reason: Anxiety) Iud azithromycin 250 mg tablet See Rx Instructions .ROUTE .COMPLEX Qty: 6 0RF Rx Instructions: take 500 mg today (day 1), then 250 mg for 4 days (days 2-5) lidocaine HCl [Lidocaine Viscous] 2 % solution 5 ml MUCOUS MEM QID PRN (Reason: pain) Qty: 100 0RF Rx Instructions: Garwaltere and cassiust Follow-up/Referrals: Song Marcum MD [Physician, ETHNOLOGY PROFESSOR] - 1 Day Teodora Cuevas MD [Primary Care Provider, Family Practice]
[2025-07-20 10:39] LABS: INR 1.0; Prothrombin Time 13.1 Seconds (11.1-14.7)
[2025-07-20 10:40] LABS: Partial Thromboplastin Time 24.6 Seconds (22.3-36.8)
[2025-07-20 10:51] LABS: Alanine Aminotransferase 19 U/L (6-35); Albumin Level 4.0 g/dL (3.5-5.1); Alkaline Phosphatase 78 U/L (38-126); Anion Gap 9 mmol/L (4-12); Aspartate Amino Transferase 23 U/L (14-36); Bilirubin,Total 0.2 mg/dL (0.2-1.3); Blood Urea Nitrogen 6 mg/dL (7-17); Calcium 9.0 mg/dL (8.4-10.2); Carbon Dioxide 22 mmol/L (22-30); Chloride 103 mmol/L (98-107); Estimated CRCL calculation 185 ml/min; Estimated Glomerular Filt Rate > 60; Glucose 137 mg/dL (65-110); Potassium 3.5 mmol/L (3.4-5.0); Sodium 134 mmol/L (137-145); Total Protein 7.6 g/dL (6.3-8.2)
[2025-07-20 11:09] LABS: Add Urine Microscopic? YES
[2025-07-20 11:13] LABS: Appearance Urine Sl Cloudy (Clear); Glucose Urine UA Negative (Negative); Leukocyte Esterase Ur 1+ LEU/UL (Negative); Nitrate Urine Negative (Negative); Specific Grav Ur 1.015 (1.001-1.035)
[2025-07-20 11:14] LABS: Need Manual Microscopic Yes
[2025-07-20 11:37] LABS: Beta HCG Quantitative 37503.00 mIU/ML
--- OUTSIDE RECORDS SUMMARY | 2025-07-20 12:57 | XMS_ITS | Clinical Summary ---
Author Organization [facility] Address [address] [place] [address] Phone Care Team Providers Care Home Appraiser Name Role Phone Teodora Cuevas MD Primary Care Provider [phone] Allergies No known active allergies Medications fluocinonide [...] (06/28/2022): Added automatically from request for surgery [id number] Excessive daytime sleepiness 11/15/2020 ANSHUL (generalized anxiety [...] WISDOM TOOTH EXTRACTION Oral Surgery Tooth Extraction [place] Tooth - (Added by TW Conv) TYMPANOSTOMY [...] on file Legal Sex Female 6:10 PM ART STUDIO TEACHER Gender Identity Female 09/08/2020 8:35 AM ART STUDIO TEACHER Sexual Orientation Straight 09/08/2020 8: 35 AM ART STUDIO TEACHER Obstetrics History Para Term AB IAB [...] 114.3 kg (252 lb) 08/28/2022 12:36 PM ART STUDIO TEACHER Height 160 cm (5' 3) 12/21/2021 12:59 PM ART STUDIO TEACHER Body Mass Index 44.64 12/21/2021 12:59 PM ART STUDIO TEACHER Plan of Treatment Health Maintenance Due [...] Recently Relevant to Health Maintenance [place] [address] [employer] Care Teams Home Appraiser Relationship Specialty Start Date End Date Teodora Cuevas MD [address] [place] [address] PCP - General Family Medicine 09/06/22
--- OUTSIDE RECORDS SUMMARY | 2025-07-20 12:57 | XMS_ITS | Clinical Summary ---
Author Organization [facility] Address [address] [place] [phone] Phone Care Team Providers Care Sewer And Drain Technician Name Role Phone Unavailable Primary Care Provider [...]
--- OUTSIDE RECORDS SUMMARY | 2025-07-20 12:57 | XMS_ITS | Clinical Summary ---
Author Organization [facility] Address [address] [place] [address] Care Team Providers Care Publicist Name Role Phone Teodora Cuevas MD Primary Care Provider [phone] Allergies No known active allergies Medications sertraline [...] topic Meningococcal Vaccine Aged Out No lisa acrolyn eligible based on patient's age to complete this topic Pneumococcal Vaccine: Pediatrics (0 to 5 Years) and At-Risk Patients (6 to 49 Years) Aged Out No longer eligible based on patient's age to complete this topic RSV Immunizations Under 20 Months Aged Out No longer eligible based on patient's age to complete this topic Insurance [facility] Care Teams Publicist Relationship Specialty Start Date End Date Teodora Cuevas MD [address] [place] [address] PCP - General FAMILY PRACTICE 08/02/24
--- OUTSIDE RECORDS SUMMARY | 2025-07-20 12:57 | XMS_ITS | Clinical Summary ---
Author Organization [facility] Care Team Providers Care Sample Collector Name Role Phone Unavailable Primary Care Provider [...]
--- OUTSIDE RECORDS SUMMARY | 2025-07-20 12:57 | XMS_ITS | Data Portability ---
Author Organization [facility] Address [address] [place] [address] [place] [address] Care Team Providers Care Nuclear Plant Technical Advisor Name Role Phone CLIFTONJURGEN Gutierres Primary Care Provider [phone] Assessment No assessment recorded. Plan of Treatment Reminders Order Date Submit Date Provider Last Modified By Organization Details Last Modified Time Details Appointments U/S OB FIRST LOOK 2024 11:30A M ULTRASOUND Not available Not available Not available OB NEW 2024 01:00P Verónica MARCUM MD Not available Not available Not available Lab genetic screen, unspeci fied specime n 2024 025 [facility]HE[facility], [address], [place], [address], 07/20/2025 12:45:31 HbA1c (hemogl obin A1c), blood 2024 025 [facility] (Lab), [address] , [place], [address], 07/11/2025 12:46:35 type + screen, blood 2024 025 [facility] (Lab), [address] , [place], [address], 07/11/2025 12:46:35 rubella igg Ab, titer, serum 2024 025 [facility] (Lab), [address] [facility], [place], [address], 07/11/2025 12:46:35 CBC w/ auto diff 2024 025 [facility] (Lab), [address] [facility] [address] [facility], [place], [address], 07/11/2025 12:46:34 hepatit is C virus Ab, serum 2024 025 [facility] (Lab), [address] [facility] [address] [facility], [place], [address], 07/11/2025 12:46:34 HBsAg (hepati tis B surface Ag), serum 2024 025 [facility] (Lab), [address] [facility] [address] [facility], [place], [address], 07/11/2025 12:46:33 RPR (rapid plasma reagin) , serum 2024 025 [facility] (Lab), [address] [facility] [facility], [place], [address], 07/11/2025 12:46:36 HIV 1+2 AB + HIV 1 p24 Ag, qualita tive immunoa ssay, serum 2024 025 [facility] (Lab), [address] [facility] [address] [facility], [place], [address], 07/11/2025 12:46:34 TSH, serum or plasma 2024 025 [facility] (Lab), [address] [facility], [place], [address], 07/11/2025 12:46:35 aneuplo idy risk, chromos ome specifi c circula ting cell free (ccf) DNA, materna l serum 2024 025 [facility], [address], [place], [address], 07/20/2025 12:45:12 pregnan cy test, urine 2024 025 [email or web address] [place], [address], [place], [address], 05/26/2025 10:12:15 beta-HC G, quantit ative, serum or plasma 2024 025 [facility] (Lab), [address], [place], [address], 05/27/2025 09:07:11 Referral None recorde d. Procedures None recorde d. Surgeries None recorde d. Imaging US, obstetr ic, 1st trimest er 2024 025 [email or web address] [address], [address], [place], [address], 07/01/2025 16:36:47 US, obstetr ic, transva ginal 2024 025 [email or web address] [address], [address], [place], [address], 06/22/2025 08:53:09 Medication Orders None recorde d. Patient TargetsNo targets recorded. Patient InstructionsNo instructions recorded. Reason for Referral None Reported. Results Created Date Observation Date Name Description Value Unit Range Abnormal Flag Note LastModifiedBy Organization Detail LastModifiedTime 05/08/20 25 05/08/2025 PROGE STERO NE progesterone 0.19 NG/mL This assay was perfo rmed using [employer] ratio n reage nts and test kits. Value s obtai inderjit with other assay metho ds or kits canno t be used inter lobo eably . Femal e Proge stero ne Range s: Folli cular phase 0.06- 0.89 ng/mL Ovula tion phase 0.12- 12.00 ng/mL Lutea l phase 1.83- 23.90 ng/mL Postm enopa usal <0.05 -0.13 ng/mL Healt hy Pregn ant Women 1st Trime ster 11.0- 44.30 2nd Trime ster 25.40 -83.3 0 3rd Trime ster 58.70 -214. 00 Not Available [facility] (Lab) [address] [place], [address], 05/23/2025 17:34:00 05/08/20 25 05/08/2025 ESTRA DIOL estradiol 94.0 pg/mL This assay was perfo rmed using [employer] ratio n reage nts and test kits. Value s obtai inderjit with other assay metho ds or kits canno t be used inter lobo eably . Femal e Estra diol Range s: Folli cular phase 12.4- 233 pg/mL Ovula tion phase 41.0- 398 pg/mL Lutea l phase 22.3- 341 pg/mL Postm enopa usal <5-13 8 pg/mL Healt hy Pregn ant Women 1st Trime ster 154-3 243 pg/mL 2nd Trime ster 1561- 18185 pg/mL 3rd Trime ster 8525- >3000 0 pg/mL Not Available [facility] (Lab) [address] [place], [address], 05/23/2025 17:34:01 05/08/20 25 05/08/2025 PROLA CTIN prolactin, total 21.10 NG/mL 4.79-2 3.30 This assay was perfo rmed using [employer] ratio n reage nts and test kits. Value s obtai inderjit with other assay metho ds or kits canno t be used inter lobo eably . Not Available [facility] (Lab) [address] [place], [address], 05/23/2025 17:34:01 05/08/20 25 05/08/2025 LH (LUTE NIZIN G HORMO NE) LH 9.3 mIU/m L This assay was perfo rmed using [employer] ratio n reage nts and test kits. Value s obtai inderjit with other assay metho ds or kits canno t be used inter lobo eably . Femal es Mid-F ollic ular: 2.4-1 2.6 mIU/m L Mid-C ycle: 14.0- 95.6 mIU/m L Mid-L uteal : 1.0-1 1.4 mIU/m L Postm enopa use: 7.7-5 8.5 mIU/m L Not Available [facility] (Lab) [address], [place], [address], 05/23/2025 17:34:01 05/08/20 25 05/08/2025 FSH FSH 3.4 mIU/m L This assay was perfo rmed using [employer]po ratio n reage nts and test kits. Value s obtai inderjit with other assay metho ds or kits canno t be used inter lobo eably . Femal es Folli cular : 3.5-1 2.5 mIU/m L Ovula tion: 4.7-2 1.5 mIU/m L Lutea l: 1.7-7 .7 mIU/m L Postm enopa use: 25.8- 134.8 mIU/m L Not Available [facility] (Lab) [address] , [place], [address], 05/23/2025 17:34:02 05/08/20 25 05/08/2025 DHEA SULFA TE DHEA-sulfate 264 ug/dL Femal e Range s Age(y ) Range (ug/d L) 10-15 34-28 0 15-20 65-36 8 20-25 148-4 07 25-35 99-34 0 35-45 61-33 7 45-55 35-25 6 55-65 19-20 5 65-75 9-246 > 75 12-15 4 Not Available [facility] (Lab) [address] , [place], [address], 05/23/2025 17:34:02 05/08/20 25 05/08/2025 ANTIM ULLER JUDY HORMO NE (AMH) anti-mulleri an hormone (amh) 4.43 NG/mL Femal e Refer ence Range s 20-24 years : 1.22 - 11.70 ng/mL 25-29 years : 0.89 - 9.85 ng/mL 30-34 years : 0.58 - 8.13 ng/mL 35-39 years : 0.15 - 7.49 ng/mL 40-44 years : 0.03 - 5.47 ng/mL The follo wing resul ts were obtai inderjit with the [employer] assay . Resul ts from assay s of other manuf actur es canno t be used inter lobo ably. Not Available [facility] (Lab) [address] [facility] [address] [facility], [place], [address], 05/23/2025 17:34:02 05/08/20 25 05/08/2025 TSH, REFLE X FREE T4 TSH 1.27 uIU/m L 0.30-5 .33 Not Available [facility] (Lab) [address] [facility] [facility], [place], [address], 05/23/2025 17:34:03 05/08/20 25 05/08/2025 HUMAN SEX HORMO NE HUMBERTO NG GLOBU ANGELA sex hormone binding globulin 12.1 nmole s/L 18.2-1 35.5 low Not Available [facility] (Lab) [address], [place], [address], 05/23/2025 17:34:03 05/08/20 25 05/08/2025 HEMOG LOBIN A1C hemoglobin A1C 5.9 % 4.0-5. 6 high The Ameri can [employer] ashlyn [employer] iatio n recom mends that a prima ry goal of thera py momoul d be a HBA1C of < 7% and that physi cians shoul d reeva luate the treat ment regim en in patie nts with HBA1C value s consi stent ly > 8%. <5.7% Celeste l 5.7 - 6.4% Incre ased risk for diabe ashlyn >=6.5 % Diagn ostic of diabe ashlyn <7.0% Goal of thera py >8.0% Actio n sugge sted Not Available [facility] (Lab) [address] [facility] [address], [place], [address], 05/23/2025 17:34:03 05/08/20 25 05/08/2025 TESTO STERO NE, FREE( DIALY SIS) AND TOTAL (LC/M S/MS) testosterone , total 38 NG/dL 2-45 For addit ional [facility] jimenez e refer to http: //[facility] adrianna ybers.que stdia gnost ics.c om/fa q/ Total Testo stero neLCM SMSFA Q165 (This link is being provi ded for [facility]/ educa mohinder l purpo ses only. ) This test was devel oped and its bridgette tical perfo rmanc e nigel cteri stics have been deter mined by Chrys[facility] ostnickolas s [place], [place]. It has not been clear ed or appro mara by the U.S. Food and Drug Admin istra tion. This assay has been valid ated pursu ant to the [facility] regul ation s and is used for clini catherine purpo ses. Not Available [facility] (Lab) [address], [place], [address], 05/23/2025 17:34:04 05/08/20 25 05/08/2025 TESTO STERO NE, FREE( DIALY SIS) AND TOTAL (LC/M S/MS) testosterone , free 9.2 pg/mL 0.1-6. 4 high This test was devel oped and its bridgette tical perfo rmanc e nigel cteri stics have been deter mined by Chrysallis nicholas gutierres [place], [place]. It has not been clear ed or appro mara by the U.S. Food and Drug Admin istra tion. This assay has been valid ated pursu ant to the [facility] regul ation s and is used for clini catherine purpo ses. Perfo rming Organ izati on [facility] n: Site ID: [id number] Name: Estrellita Vera ls [facility] tut[facility]ia Addre ss: [id number] [place], [place] Direc tor: Nona Johnson MD PhD Not Available [facility] (Lab) [address], [place], [address], 05/23/2025 17:34:04 05/08/2005/08/2025 17-OH PROGE STERO NE 17-hydroxypr ogesterone, lc/MS/MS 61 NG/dL Adult Femal e Refer ence Range s for 17-Hy droxy proge stero ne: Pre-M enopa usal Mid Folli cular : 23-10 2 ng/dL Pre-M enopa usal Surge : 67-34 9 ng/dL Pre-M enopa usal Mid Lutea l: 139-4 31 ng/dL Postm enopa usal Phase : < or = 45 ng/dL Pregn jerry: First Trime ster: 78-45 7 ng/dL Secon d Trime ster: 90-35 7 ng/dL Third Trime ster: 144-5 78 ng/dL This test was devel oped and its bridgette tical perfo rmanc e nigel cteri stics have been deter mined by [facility]. It has not been clear ed or appro mara by the FDA. This assay has been valid ated pursu ant to the CLIA regul ation s and is used for clini catherine purpo ses. Perfo rming Organ izati on Infor matio n: Site ID: [id number] Name: [facility] an [place] , Addre ss: [id number] [facility] [place] [address] Direc tor: Luci kirk MD,Ph D,CAIN Not Available [facility] (Lab) [address], [place], [address], 05/23/2025 17:34:04 05/26/2005/26/2025 BHCG, QUANT ITATI VE B-HCG 39.1 mIU/m L 0.0-4. 9 high This assay was perfo rmed using [employer] ratio n reage nts and test kits. Value s obtai inderjit with other assay metho ds or kits canno t be used inter lobo eably . Refer ence Range s: Non-p regna nt, preme nopau bri women : 0.0-4 .9 mIU/m L Postm enopa usal women : 0.0-7 .0 mIU/m L Celeste l Pregn jerry: Gesta mohinder l Age bHCG Conc. - mIU/m L 3 Weeks 5.8 - 71.7 4 Weeks 9.5 - 750 5 Weeks 217-7 138 6 Weeks 158 - 31,79 5 7 Weeks 3,697 - 162,5 63 8 Weeks 32,06 5 - 149,5 71 9 Weeks 63,80 3 - 151,4 10 10 Weeks 46,50 9 - 186,9 77 12 Weeks 27,83 2 - 210,6 12 14 Weeks 13,95 0 - 62,53 0 15 Weeks 12,03 9 - 70,97 1 16 Weeks 9,040 - 56,45 1 17 Weeks 8,175 - 55,86 8 18 Weeks 8,099 - 58,17 6 Not Available [facility] (Lab) [address], [place], [address], 05/27/2025 09:07:11 05/26/20 25 05/26/2025 pregn jerry test, urine HCG positi ve Not Available [place] [address], [place], [address], 05/26/2025 10:11:29 05/28/20 25 05/28/2025 BHCG, QUANT ITATI VE B-HCG 84.5 mIU/m L 0.0-4. 9 high This assay was perfo rmed using [employer] Cor[employer] ratio n reage nts and test kits. Value s obtai inderjit with other assay metho ds or kits canno t be used inter [facility] . Refer ence Range s: Non-p regna nt, preme nopau bri women : 0.0-4 .9 mIU/m L Postm enopa usal women : 0.0-7 .0 mIU/m L Celeste l Pregn jerry: Gesta mohinder l Age bHCG Conc. - mIU/m L 3 Weeks 5.8 - 71.7 4 Weeks 9.5 - 750 5 Weeks 217-7 138 6 Weeks 158 - 31,79 5 7 Weeks 3,697 - 162,5 63 8 Weeks 32,06 5 - 149,5 71 9 Weeks 63,80 3 - 151,4 10 10 Weeks 46,50 9 - 186,9 77 12 Weeks 27,83 2 - 210,6 12 14 Weeks 13,95 0 - 62,53 0 15 Weeks 12,03 9 - 70,97 1 16 Weeks 9,040 - 56,45 1 17 Weeks 8,175 - 55,86 8 18 Weeks 8,099 - 58,17 6 Not Available [facility] (Lab) [address] , [place], [address], 05/29/2025 03:34:45 07/07/2007/07/2025 CULTU RE: URINE result report SEE RESULT S BELOW Test: Cultu re: Urine Speci men Sourc e: Urine - Clean Catch Speci men Type: Urine Speci men Date: 2024 1454 Resul t Date: 2024 1124 Resul t Statu s: Final resul t Abnor mal: No Resul ting Lab: [facility] [address] [facility] [address] Tel: CULTU RE ----- ----- ----- --- Cultu re resul t (>=3 organ isms prese nt) indic ates possi ble conta minat ion. Repea t cultu re if sympt oms indic ate. Not Available [facility] (Lab) [address], [place], [address], 07/09/2025 12:38:35 05/15/20 25 05/15/2025 US, pelvi s No observ ation record ed. [facility] [address], [place], [address], 05/15/2025 17:32:13 05/15/20 25 05/15/2025 US, trans vagin al No observ ation record ed. [facility] [address], [place], [address], 05/15/2025 17:32:24 05/15/20 25 05/15/2025 US, pelvi s No observ ation record ed. [facility] [address], [place], [address], 05/15/2025 14:52:12 06/19/20 25 06/19/2025 US, obste tric, 1st trime ster No observ ation record ed. [email or web address] [address], [place], [address], 06/19/2025 17:20:25 06/19/20 25 06/19/2025 US, obste tric, trans vagin al No observ ation record ed. [email or web address] [place] [address], [place], [address], 06/19/2025 17:22:35 07/01/20 25 07/01/2025 US, obste tric, 1st trime ster No observ ation record ed. [email or web address] [place] [address], [place], [address], 07/01/2025 16:32:18 07/01/20 25 07/01/2025 US, obste tric, follo w-up No observ ation record ed. [email or web address] [address], [place], [address], 07/01/2025 18:31:03 Result Notes None recorded. Problems Name Problem SNOMED Code Status Onset Date Resolution Date Notes Provider Name and Address Organization Details Recorded Time Spotting per vagina in pregnanc y [id number] Completed 201612/17/2020 Spotting complica ting pregnanc y, third trimeste r;Practi ce ID: [address] [facility] 11:18:22 Gestatio n period, 25 weeks 75337556 Completed 201612/17/2020 25 weeks gestatio n of pregnanc y;Practi ce ID: 0001 Valentina edwards, [facility] 11:17:37 Backache [id number] Completed 201612/17/2020 Back pain;Rec orded Elsewher e: No Locat ion: Karly cespedes [facility] S ource: EHR Ui Ux Engineer ishan: N Practi ce ID: 0001 Kameron lable Time: 08:30:00 AM Valentina edwards [facility] 11:17:27 Pregnanc y, childbir th and puerperi um finding Completed 201612/17/2020 Encntr for suprvsn of normal first preg, second trimeste r;Practi ce ID: 0001 Valentina edwards, [facility] 11:18:09 Short cervical length in pregnanc y [id number] Completed 201612/17/2020 Cervical shorteni ng, second trimeste r;Record ed Elsewher e: No Locat ion: [facility] S ource: EHR Ui Ux Engineer ishan: N Practi ce ID: 0001 Kameron lable Time: 03:00:00 PM Valentina edwards [facility] 11:18:15 Gestatio n period, 27 weeks [id number] Completed 201612/17/2020 27 weeks gestatio n of pregnanc y;Record ed Elsewher e: No [facility] S ource: EHR Ui Ux Engineer ishan: N Practi ce ID: 0001 Kamreon lable Time: 03:00:00 PM Valentina edwards [facility] 11:17:38 Diet educatio n Completed 201612/17/2020 Dietary counseli ng and surveill ance;Rec orded Elsewher e: No [facility]: E[facility] Ui Ux Engineer ishan: N Practi ce ID: 0001 Kameron lable Time: 09:45:00 AM Valentina edwards, [facility] 11:17:31 Dietary manageme nt surveill ance Completed 201612/17/2020 Dietary counseli ng and surveill ance;Rec orded Elsewher e: No Locat ion: [facility] S ource: EHR Ui Ux Engineer ishan: N Practi ce ID: 0001 Kameron lable Time: 09:45:00 AM Valentina edwards, [facility] 11:17:33 Gestatio n period, 29 weeks [id number] Completed 201612/17/2020 29 weeks gestatio n of pregnanc y;Practi ce ID: 0001 Valentina edwards, [facility] 11:17:40 Gestatio n period, 30 weeks [id number] Completed 201612/17/2020 30 weeks gestatio n of pregnanc y;Practi ce ID: 0001 Valentina edwards, [facility] 11:17:41 Prematur e labor [id number] Completed 201612/17/2020 labor without delivery , third trimeste r;Practi ce ID: 0001 Valentina edwards, [facility] 11:18:13 Normal pregnanc y in multigra darlene [id number] 4106 Completed 201612/17/2020 Encounte r for suprvsn of normal pregnanc y, third trimeste r;Practi ce ID: 0001 Valentina edwards, [facility] 11:18:07 Gestatio n period, 32 weeks [id number] Completed 201612/17/2020 32 weeks gestatio n of pregnanc y;Record ed Elsewher e: No Locat ion: Karly cespedes [facility] S ource: EHR Ui Ux Engineer ishan: N Practi ce ID: 0001 Kameron lable Time: 08:30:00 AM Valentina edwards [facility] 11:17:44 Vomiting of pregnanc y [id number] Completed 201612/17/2020 Vomiting of pregnanc y, unspecif ied;Prac geri ID: 0001 Valentina edwards, [facility] 11:18:24 Pregnanc y, childbir th and puerperi um finding Completed 201612/17/2020 Encounte r for supervis ion of normal first pregnanc y, third trimeste r;Record ed Elsewher e: No [facility] S ource: EHR Ui Ux Engineer ishan: N Practi ce ID: 0001 Kameron lable Time: 10:00:00 AM Valentina edwards [facility] 11:18:10 Gestatio n period, 33 weeks [id number] Completed 201612/17/2020 33 weeks gestatio n of pregnanc y;Record ed Elsewher e: No Locat ion: [facility] S ource: EHR Ui Ux Engineer ishan: N Practi ce ID: 0001 Kameron lable Time: 10:00:00 AM Valentina edwards [facility] 11:17:45 Gestatio n period, 34 weeks [id number] Completed 201612/17/2020 34 weeks gestatio n of pregnanc y;Record ed Elsewher e: No Locat ion: [facility] S ource: EHR Ui Ux Engineer ishan: N Practi ce ID: 0001 Kameron lable Time: 01:00:00 PM Valentina edwards [facility] 11:17:47 Gestatio nal diabetes mellitus 86202789 Completed 201612/17/2020 Gestatio nal diabetes mellitus in pregnanc y, diet controll ed;Recor ded Elsewher e: No Locat ion: [facility] S ource: EHR Ui Ux Engineer ishan: N Practi ce ID: 0001 Kameron lable Time: 09:30:00 AM Valentina edwards, [facility] 11:17:55 Pregnanc y-induce d hyperten sarah Completed 201612/17/2020 Gestatio nal htn w/o signific ant proteinu ryan, third trimeste r;Practi ce ID: 0001 Valentina Lyle grace, [facility] 11:18:12 Gestatio n period, 35 weeks [id number] Completed 201612/17/2020 35 weeks gestatio n of pregnanc y;Record ed Elsewher e: No Locat ion: [facility] S ource: EHR Ui Ux Engineer ishan: N Practi ce ID: 0001 Kameron lable Time: 08:30:00 AM Valentina edwards, [facility] 11:17:49 Hyperten sive disorder Completed 201612/17/2020 Unspecif ied maternal hyperten sarah, third trimeste r;Record ed Elsewher e: No Locat ion: [facility] S ource: EHR Ui Ux Engineer ishan: N Practi ce ID: 0001 Kameron lable Time: 09:30:00 AM Valentina edwards, [facility] 11:17:57 Gestatio n period, 36 weeks [id number] Completed 201612/17/2020 36 weeks gestatio n of pregnanc y;Record ed Elsewher e: No Locat ion: [facility] S ource: EHR Ui Ux Engineer ishan: N Practi ce ID: 0001 Kameron lable Time: 09:30:00 AM Valentina edwards, [facility] 11:17:51 Non-prot einuric hyperten sarah of pregnanc y [id number] Completed 201612/17/2020 Gestatnl htn without signific ant protein, comp childbir th;Pract ice ID: 0001 Valentina edwards, [facility] 11:18:06 Lacerati on of female perineum Completed 201612/17/2020 First degree perineal lacerati on during delivery ;Practic e ID: 0001 Valentina edwards, [facility] 11:18:02 Single live from singleto n pregnanc y 269663666 Completed 201612/17/2020 Single live ;Pr actice ID: 0001 Valentina Lyle [facility], [facility] 11:18:17 Gestatio n period, 37 weeks [id number] Completed 201612/17/2020 37 weeks gestatio n of pregnanc y;Practi ce ID: 0001 Valentina Lyle [facility], [facility] 11:17:52 Depressi ve disorder [id number] Completed 201612/17/2020 Depressi on;Recor ded Elsewher e: No Locat ion: Karly cespedes [facility] S ource: EHR Ui Ux Engineer ishan: N Practi ce ID: 0001 Kameron lable Time: 11:00:00 AM Valentina edwards, [facility] 11:35:38 Lochia finding Completed 201612/17/2020 Encounte r for routine postpart um follow-u p;Practi ce ID: 0001 Valentina edwards, [facility] 11:18:04 Inflamma tory disorder of breast [id number] Completed 201612/17/2020 Mastitis without abscess; Recorded Elsewher e: No Locat ion: Karly keshia [facility] S ource: EHR Ui Ux Engineer ishan: N Practi ce ID: 0001 Kameron lable Time: 08:30:00 [facility] 11:17:59 Insertio n of intraute rine contrace ptive device Completed 201612/17/2020 INSERTIO N OF IUD;Camilo rded Elsewher e: No Locat ion: [facility] keshia [facility] S ource: EHR Ui Ux Engineer ishan: N Practi ce ID: 0001 Kameron lable Time: 10:00:00 AM Valentina Lyle [facility] 11:18:00 Contrace ptive sheath status [id number] Completed 201612/17/2020 Encounte r for routine checking of intraute rine contrace p dev;Prac geri ID: 0001 Valentina Lyle [facility] 11:17:[address] Concept Completed 201712/17/2020 Encntr for general adult medical exam w/o abnormal findings ;Recorde d Elsewher e: No Locat ion: [facility] keshia [facility] S ource: EHR Ui Ux Engineer ishan: N Practi ce ID: 0001 Kameron lable Time: 05:45:00 PM Valentina Lyle [facility] 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 11:18:20 Finding of body mass index [id number] Completed 201812/17/2020 Body mass index (BMI) 40.0-44. 9, adult;Re corded Elsewher e: No Locat ion: [facility] S ource: EHR Ui Ux Engineer ishan: N Veronica ce ID: 0001 Kameron lable Time: 09:45:00 AM [facility] 11:17:36 Procedur e by method Completed 201812/17/2020 Encounte r for family planning advice NOS;Camilo rded Elsewher e: No Locat ion: [facility] S ource: EHR Ui Ux Engineer ishan: N Lobitoti ce ID: [id number] Akmeron lable Time: 02:30:00 PM [facility] 11:17:34 Generali zed anxiety disorder [id number] Active 2020 Valentina Doran [facility] 11:28:12 Depressi ve disorder 98712755 Active 2020 Valentina Lyle [facility] 11:35:38 Disorder of thyroid gland 20318185 Active 2020 Valentinajusto Lyle [facility] 11:36:14 Polycyst ic ovary [id number] Active 2020 Valentina Doran [facility] 11:45:45 Problem Notes None recorded. Procedures Surgical History Date Name Laterality Status Provider Name and Address Organization Details Recorded Time 04/15/20 25 IUD Removal completed RICO Stafford [address], [place], [address], [facility] 04/15/2025 15:33:03 04/15/20 25 Date of Last Pap Smear completed Lynsey Morales [facility] 05/26/2025 10:08:16 Tonsillectomy completed Yue De La Torre [facility] 05/24/2020 16:54:50 Imaging Results None recorded. Procedure Notes None recorded. Medical Equipment None Reported. Allergies No known drug allergies Medications Name Sig Start Date Stop Date Status Note LastModified by Organization Details LastModified Time Mirena 21 mcg/24 hr (up to 8 years) 52 mg intrauter ine device 05/26 completed Prescrib ed Elsewher e: Yes Loca tion: [facility] odify By: [email or web address] Cespedes ncounter DateTime : 04/06/20 17 10:00:00 AM Not Available Not Available Not Available buspirone 5 mg tablet 05/25 completed Not Available Not Available Not Available metformin 500 mg tablet TAKE 1 TABLET BY ORAL ROUTE EVERY DAY 11/15 completed Prescrib ed Elsewher e: No Locat ion: [facility] odify By: [email or web address] Encount er DateTime : 09/28/20 09:36:10 AM Not Available Not Available Not Available atorvasta tin 20 mg tablet TAKE 1 TABLET BY MOUTH ONCE DAILY 04/15 completed Not Available Not Available Not Available Lotrisone 1 %-0.05 % topical cream apply by topical route 2 times every day for 2 weeks to the affected and surround ing areas of skin in the morning and evening 04/18 completed Prescrib ed Elsewher e: No Locat ion: [facility] odify By: [email or web address] Encounte r DateTime : 04/05/20 08:30:00 AM Not Available Not Available Not Available phenazopy ridine 200 mg tablet TAKE 1 TABLET BY MOUTH THREE TIMES DAILY 08/10 completed Not Available Not Available Not Available prednison e 20 mg tablet TAKE 1 TABLET BY MOUTH ONCE DAILY 08/10 completed Not Available Not Available Not Available sertralin e 100 mg tablet TAKE 1 TABLET BY MOUTH ONCE DAILY active Not Available Not Available No t Available tretinoin 0.05 % topical cream APPLY A PEA-SIZE D AMOUNT TO FACE AT NIGHT 04/15 completed Not Available Not Available Not Available sulfameth oxazole 800 mg-trimet hoprim 160 mg tablet TAKE 1 TABLET BY MOUTH TWICE DAILY 04/15 completed Not Available Not Available Not Available levothyro xine 25 mcg tablet take 1 tablet by oral route every day 04/05 completed Prescrib ed Elsewher e: Yes Loca tion: Karly cespedes [facility] odify By: donnie z Encoun ter DateTime : 11/06/19 17 08:30:00 AM Not Available Not Available Not Available levothyro xine 75 mcg tablet TAKE 1 TABLET BY MOUTH ONCE DAILY active Not Available Not Available No t Available lancets Check BS QID 04/05 completed Prescrib ed Elsewher e: No Locat ion: Karly cespedes [facility] odify By: [email or web address] z Encoun ter DateTime : 12/11/19 17 10:30:40 AM Not Available Not Available Not Available amoxicill in 875 mg tablet 05/25 completed Not Available Not Available Not Available lorazepam 0.5 mg tablet TAKE 1 TABLET BY MOUTH ONCE DAILY NEEDED FOR ANXIETY 04/15 completed Not Available Not Available Not Available pantopraz ole 40 mg tablet,de layed release TAKE 1 TABLET BY MOUTH ONCE DAILY 04/15 completed Not Available Not Available Not Available oseltamiv ir 75 mg capsule TAKE 1 CAPSULE BY MOUTH EVERY 12 HOURS FOR 5 DAYS 08/10 completed Not Available Not Available Not Available triamcino lone acetonide 0.1 % topical ointment APPLY TO ITCHY AREAS ON BODY TWICE A DAY NEEDED DO NOT USE ON FACE 04/15 completed Not Available Not Available Not Available polymyxin B sulfate 10,000 unit-trim ethoprim 1 mg/mL eye drops INSTILL 1 DROP INTO EACH EYE EVERY 3 HOURS FOR 7 DAYS WHILE AWAKE DO NOT EXCEED 6 DOSES IN 24 HOURS FOR 7 DAYS 05/26 completed Not Available Not Available Not Available sertralin e 25 mg tablet TAKE 3 TABLET BY MOUTH ONCE DAILY 06/04 completed Not Available Not Available Not Available lidocaine HCl 2 % mucosal solution APPLY 5 ML EVERY 4 HOURS NEEDED FOR PAIN 04/15 completed Not Available Not Available Not Available methylpre dnisolone 4 mg tablets in a dose pack 05/25 completed Not Available Not Available Not Available Vitamin D2 1,250 mcg (50,000 unit) capsule take 1 capsule by oral route every week 02/10 completed Prescrib ed Elsewher e: No Locat ion: Karly cespedes [facility] odify By: isi madera DateTime : 11/19/19 10:54:35 AM Not Available Not Available Not Available metformin ER 500 mg tablet,ex tended release 24 hr TAKE 1 TABLET BY MOUTH IN THE EVENING active Not Available Not Available No t Available sertralin e 50 mg tablet TAKE 1 TABLET BY MOUTH ONCE DAILY 05/26 completed Not Available Not Available Not Available lorazepam 2 mg/mL oral concentra te take 0.5 millilit er by oral route 3 times every day 12/20 completed Prescrib ed Elsewher e: Yes [facility] odify By: earlene bloom DateTime : 11/24/19 04:45:00 PM Not Available Not Available Not Available spironola ctone 50 mg tablet TAKE 2 TABLETS BY MOUTH NIGHTLY 04/15 completed Not Available Not Available Not Available amoxicill in 875 mg-potass ium clavulana te 125 mg tablet TAKE 1 TABLET BY MOUTH TWICE DAILY 04/15 completed Not Available Not Available Not Available clindamyc in 1 % lotion APPLY TO FACE DAILY IN THE MORNING 04/15 completed Not Available Not Available Not Available bupropion HCl XL 150 mg 24 hr tablet, extended release TAKE 1 TABLET BY MOUTH ONCE DAILY 08/10 completed Not Available Not Available Not Available nitrofura ntoin monohydra te/macroc rystals 100 mg capsule TAKE 1 CAPSULE BY MOUTH EVERY 12 HOURS DIRECTED FOR 7 DAYS active Not Available Not Available No t Available Zoloft 12/20 completed Not Available Not Available Not Available Fish Oil 12/20 completed Not Available Not Available Not Available lorazepam 05/25 completed Not Available Not Available Not Available active Not Available Not Avai lable Not Available azelastin e 205.5 mcg (0.15 %) nasal spray 05/25 completed Not Available Not Available Not Available Tirosint 50 mcg capsule take 1 capsule by oral route every day 02/10 completed Prescrib ed Elsewher e: No Locat ion: [facility] odify By: chhaya bloom DateTime : 11/12/19 18 05:45:00 PM Not Available Not Available Not Available Tirosint 13 mcg capsule take 1 capsule by oral route every day 12/17 completed Prescrib ed Elsewher e: Yes Loca tion: Karly cespedes [facility] odify By: chhaya Encounte r DateTime : 02/11/20 19 02:30:00 PM Not Available Not Available Not Available Tirosint 12/20 completed Not Available Not Available Not Available 28 mg iron-800 mcg tablet 02/12 completed Prescrib ed Elsewher e: Yes Loca tion: Karly cespedes [facility] odify By: [email or web address] Encounte r DateTime : 11/06/19 17 08:30:00 AM Not Available Not Available Not Available OYSTER SHUCKER-PNV-DH A 28 mg iron-1 mg-200 mg capsule take 1 capsule by oral route every day 02/10 completed Prescrib ed Elsewher e: No Locat ion: Karly cespedes [facility] odify By: chhaya Encounte r DateTime : 02/13/20 17 08:45:50 AM Not Available Not Available Not Available Solosec [address] granules in packet TAKE 2 GRAMS BY MOUTH EVERY DAY WITH MEALS FOR 1 DAY 12/20 completed Not Available Not Available Not Available BinaxNOW COVID-19 Ag Self Test kit Use as Directed on the Package 08/10 completed Not Available Not Available Not Available Wegovy 1 mg/0.5 mL subcutane ous pen injector INJECT 0.5ML SUBCUTAN EOUSLY ONCE WEEKLY 04/15 completed Not Available Not Available Not Available Wegovy 0.25 mg/0.5 mL subcutane ous pen injector INJECT 0.25MG SUBCUTAN EOUSLY ONCE WEEKLY 08/10 completed Not Available Not Available Not Available Wegovy 0.5 mg/0.5 mL subcutane ous pen injector INJECT 0.5 ML UNDER THE SKIN WEEKLY 04/15 completed Not Available Not Available Not Available Paxlovid 300 mg (150 mg x 2)-100 mg tablets in a dose pack TAKE 3 TABLETS TOGETHER (TWO 150 MG NIRMATRE LVIR TABLETS AND ONE 100 MG RITONAVI R TABLET) BY MOUTH TWICE DAILY FOR 5 DAYS. 04/15 completed Not Available Not Available Not Available Vitals Date Recorded Body height Body mass index (BMI) Body weight Systolic And Diastolic Provider Name and Address Organization Details Last Updated DateTime 05/26/2025 160.02 cm 49.4 kg/m2 071365.27 g 146/84 mm[Hg] Lynsey Morales [facility] 05/26/2025 10:05:38 Date Recorded Body height Body mass index (BMI) Body weight Systolic And Diastolic Provider Name and Address Organization Details Last Updated DateTime 06/19/2025 160.02 cm 49.2 kg/m2 199226.68 g 111/76 mm[Hg] Devi Olivianey [facility] 06/19/2025 16:36:05 Date Recorded Body height Provider Name an d Address Organization Details Last Updated DateTime 07/07/[address] [facility] 07/13/2025 10:44:59 Social History Question Answer Notes LastModified by Organizat ion Details LastModified Time Tobacco Smoking Status Former Smoker Devi Marie [facility] 08/10/2023 09:48:30 Do You Have An Advance Directive? No [email or web address] Information n ot available 12/20/2020 How Many Years Have You Consumed Alcohol? 8 [email or web address] Information not available 12/20/2020 Are You Blind Or Do You Have Difficulty Seeing? No Information n ot available 12/20/2020 What Is Your Level Of Caffeine Consumption? Heavy Information not available 12/20/2020 How Much Tobacco Do You Chew? None Information not available 12/20/2020 In The 14 Days Before Symptom Onset, Have You Had Close Contact With A Laboratory-confirm ed COVID-19 While That Case Was Ill? No Information n ot available 12/20/2020 In The 14 Days Before Symptom Onset, Have You Had Close Contact With A Person Who Is Under Investigation For COVID-19 While That Person Was Ill? No [email or web address] Information not available 12/20/2020 Have You Been To An Area Known To Be High Risk For COVID-19? No [email or web address] Information not available 12/20/2020 Are You Deaf Or Do You Have Serious Difficulty Hearing? No [email or web address] Information not available 12/20/2020 What Type Of Diet Are You Following? REGULAR [email or web address] Information n ot available 12/20/2020 What Is The Highest Grade Or Level Of School You Have Completed Or The Highest Degree You Have Received? [id number] Information not available 12/20/2020 Are There Any Guns Present In Your Home? Yes [email or web address] Information not available 12/20/2020 Have You Ever Been Counseled For Unhealthy Alcohol Use? No Information not available 05/26/2025 Do You Use Protection During Sex? No [email or web address] Information not available 12/20/2020 Do You Use Your Seat Belt Or Car Seat Routinely? Yes [email or web address] Information not available 12/20/2020 Are You Sexually Active? Yes [email or web address] Information not available 05/26/2025 Do You Have Smoke And Carbon Monoxide Detectors In Your Home? Yes [email or web address] Information not available 12/20/2020 How Much Tobacco Do You Smoke? No [email or web address] Information not available 12/20/2020 Do You Use Sunscreen Routinely? Yes [email or web address] Information not available 12/20/2020 Have You Used IV Drugs? No [email or web address] Information not available 12/20/2020 Sex: Unknown Functional Status Question Answer Note LastModified by Organizat ion Details LastModified Time Do you use any illicit or recreational drugs? No [email or web address] Information not available 12/20/2020 What is your level of alcohol consumption? Occasional Information not available 12/20/2020 Are you able to walk independently without assistance or assistive devices? 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 Occasional [email or web address] Information not available 12/20/2020 Mental Status Question Answer Note LastModified by Organization D etails LastModified Time Do you feel stressed (tense, restless, nervous, or anxious, or unable to sleep at night)? [id number] [email or web address] Information not available 12/20/2020 Family History Relationship Description Onset Age of this Age Resolved Age Notes LastModified by Organization Details LastModified Time Father Hypertensive disorder [email or web address] Not available 2019 09:49:44 Maternal Grandfather Disorder of cardiovascul ar system [email or web address] Not available 2024 13:56:26 Medical History Condition Response Allergies (Food, seasonal, environmental ) N Other N Breast Cancer N Drug/Latex Allergies/Reactions N Blood Transfusion N Dermatologic Disorders N Lung Disease N Defects or Inherited Disease N Breast Problem N Gestational Diabetes N Hematologic disorders N Anesthesia Complications N History of STI N Deep Vein Thrombosis N Polycystic ovary syndrome Y Anxiety Disorder Y Autoimmune disease N Arthritis N Infertility N Polyps N Acid Reflux (GERD) N History of abnormal pap N Cancer N Stroke N Varicosities N Neurologic/Epilepsy N Endometriosis N High Cholesterol N Headaches N Fibromyalgia N Kidney Disease N Heart Problems N Kidney or Bladder Problems N Thyroid Problems Y GI Problems N Eating Disorder N Anemia N Art (IVF or FET) N Psychiatric Illness N Ovarian Cancer N Diabetes N Pulmonary (TB, Asthma) N Hepatitis/Liver Disease N No Past Medical History N Eczema N Urinary Tract Infection N Abuse/Domestic Violence N Asthma N Trauma/Violence N Depression/ depression Y Heart Disease N Pre-Eclampsia N Hypertension N Osteoporosis N Thrombophilias N Gynecological History Statement/Question Response Abnormal Pap N Flow Moderate Date of LMP 04/19/2025 N On BCP's at Conception? N STIs/STDs N Was last menstrual period normal Y HPV Vaccine Y Duration of Flow (days) 3 Current Control Method Age at First Child 26 Are cycles usually normal Y Date of Last Colonoscopy Frequency of Cycle (Q days) 30 Sexually Active? Y IUD Menses Monthly Y Date of DEXA bone scan Age of first menstrual cycle 12 Date of Last Pap Smear 04/15/2025 Sexual Problems? N LMP Definite N Obstetrics History GPAL:G 2 P 1 0 0 1 Type Value Full Term 1 Living 1 Total 2 Past Encounters Encounter ID Performer Location Encounter Start Date Encounter Closed Date Diagnosis/Indication Diagnosis SNOMED-CT Code Diagnosis ICD10 Code Diagnosis IMO Codes Diagnosis Note [id number] [facility] [address] [address] 05/25/2020 09:38:20 05/25/2020 10:28:16 Vaginitis 47661847 N76.0 exam indicates likely BV. [facility]. Counseled on medication R/B's, Most common side effects, & use. All questions were answered to patient satisfacti on. If not covered by insurance or savings card will call to change type of txment. Time spent in visit is a total of 15 mins with at least 50% of visit consisting of counseling and review of plan of care. [id number] Karma Hoyos CNM [place] [address] [address] 12/20/2020 12:31:48 12/20/2020 12:59:57 Gynecologic examination 77404335 Z01.419 Take Calcium with Vitamin D 1200mg daily if not receiving in daily diet. It is strongly advised to have an annual flu shot and up can obtain at most pharmacies . If you have not had a TDap shot in the last 10 years you should obtain one as well. Discussed with patient & provided with informatio n regarding Gardisil vaccine to prevent the 4 strains for HPV that cause cervical cancer if under age 26. Encourage safe sexual practices, to use condoms and limit partners if not already in a monogamous relationsh ip. Do monthly self breast exams. Have mammogram yearly or every other year depending on family history. BRCA testing is now available for patients with strong genetic history of female cancer. If interested contact the office. Engage in daily exercise of low impact aerobic exercise 45-60 minutes 4-5 times weekly. Avoid tobacco and illicit drugs as well as using moderation with alcohol intake less than 1-2 8 oz beverages daily. This lifestyle behavior pattern will lead to less health conditions and longer life span. If BMI greater than 25 weight watchers or dietary consult advised. Patient received above instructio ns, and questions have been answered. If you have any questions please call or respond to this email. Patient was made aware of the patient portal and may obtain a paper copy of today's plan if desired. Intrauteri ne device check [id number] Z30.431 Unable to visualize IUD strings. U/S to be scheduled. [id number] Song Marcum MD [place] [address] [address] 12/23/2020 11:17:50 12/23/2020 12:12:50 Mechanical complication of intrauterine contraceptive device [id number] T83.39XA [id number] Karma Hoyos CNM [place] [address] [address] 03/30/2021 09:40:28 03/30/2021 10:34:44 Specimen unsatisfactory for evaluation [id number] R85.615 Will await results. [id number] RICO Stafford [place] [address] [address] 08/10/2023 09:47:18 08/10/2023 10:43:04 Gynecologic examination 72225844 Z01.419 [facility] - Mirena IUD, inserted 04/06/2017h appy with this method and would like to continueIU D strings not visualized on exampelvic u/s ordered for IUD checkpap updatedSTI testing declinedbi lateral breast u/s ordered for further evaluation of breast tenderness recommende d decreasing caffeine intakeenco uraged annual exam with PCPRTC in 1 yr or sooner if needed Take Calcium with Vitamin D daily if not receiving in daily diet.It is strongly advised to have an annual flu shot and up can obtain at most pharmacies . If you have not had a TDap shot in the last 10 years you should obtain one as well.Discu ssed with patient & provided with informatio n regarding Gardisil vaccine to prevent the 4 strains for HPV that cause cervical cancer if under age 26.Encoura ge safe sexual practices, to use condoms and limit partners if not already in a monogamous relationsh ip.Do monthly self breast exams.Enga ge in daily exercise of low impact aerobic exercise 45-60 minutes 4-5 times weekly. Avoid tobacco and illicit drugs as well as using moderation with alcohol intake less than 1-2 8 oz beverages daily. This lifestyle behavior pattern will lead to less health conditions and longer life span. If BMI greater than 25 dietary consult advised.Jalen sommers received above instructio ns, and questions have been answered. If you have any questions please call or respond to this email.Emily saldana was made aware of the patient portal and may obtain a paper copy of today's plan if desired. Tenderness of breast 552 27201 N64.4 IUD check 692255961 Z30. 431 [id number] RICO Stafford [place] [address] [address] 04/15/2025 12:29:49 04/15/2025 16:26:24 Gynecologic examination 20380927 Z01.964 [id number] WWEPap - done todaySTI screen - declinedRo utine labs - PCPRTC in 1 yr or sooner if needed It is strongly advised to have an annual flu shot and up can obtain at most pharmacies . If you have not had a TDap shot in the last 10 years you should obtain one as well. Discussed with patient & provided with informatio n regarding the HPV vaccine if applicable . Encourage safe sexual practices, to use condoms and limit partners if not already in a monogamous relationsh ip. Do monthly self breast exams. BRCA testing is now available for patients with strong genetic history of female cancer. If interested contact the office. Engage in regular exercise. Avoid tobacco and illicit drugs. This lifestyle behavior pattern will lead to less health conditions and longer life span. If BMI greater than 25 dietary consult advised. Questions answered. Removal of intrauterine contraceptive device [id number] Z30.432 [id number] UPT (-)Pt desired IUD removal todayIUD removed (see procedure note) Polycystic ovary syndrome 676794109 E28.2 [id number] Discussed TTC and h/o PCOSwas on letrozole when conceived in 2016plan labs and pelvic u/s in 1 month, f/u with to reviewenco uraged daily PNV Time spent in visit is a total of 35 mins with at least 50% of visit consisting of counseling and review of plan of care. [id number] YESSENIA SOFIA MD [place] [address] [address] 05/15/2025 12:15:21 05/15/2025 13:19:17 History of gynecological disorder 796693826 Z87.42 [id number] YESSENIA SOFIA MD [place] [address] [address] 05/26/2025 09:45:43 05/26/2025 10:44:13 Abnormal menstrual cycle 48457569 N92.6 [id number] Amenorrhea 37009397 N91. 2 08390 - LMP 7/6- +OPK 729- +UPT in office today- will start serial quants- follow up at 8 weeks for sneak peek US and OB screen [id number] YESSENIA SOFIA MD [place] [address],[place] [address] 06/19/2025 15:42:26 06/22/2025 08:53:09 First trimester 33810122 Z3A.01 8077023 [id number] YESSENIA SOFIA MD [place] [address],[place] [address] 06/19/2025 15:43:50 06/22/2025 08:51:31 test positive 052029904 Z32.01 [id number] 1. Exam today within normal limits.2. Ultrasound today confirms GA and viability. EDC . GC/Clamydi a testing done: will f/u as indicated. 4. ACOG guidelines and plan of care for reviewed with patient. All questions answered.5 . Return to office at 12 weeks for new OB visit6. Will need new OB labs at next visit.7. Genetic screening: desires at 10 weeks. 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 98295637 Z31.430 [id number] Song Marcum MD [place] [address],[facility] [address] 07/01/2025 14:18:06 07/01/2025 14:56:54 Abdominal pain in early 027056125 O26.899 R10.9 Z3A.08 [id number] Song Marucm MD [place] [address],[place] [address] 07/07/2025 13:56:18 07/13/2025 11:33:42 Health Concerns Section Related Observation LastModified by Organization Detai ls LastModified Time None Recorded Concern Status LastModified by Organization Details LastModified Time None Recorded Advance Directives Directive N: Payers Insurance Date Sequence Insurance Name Policy Number Policy Kaba Covered Member ID Kaba Member ID Guarantor Name 07/20/2025 1 [facility] [id number] May Whaley [id number] May Whaley Notes Date Note Type Note Provider Name and Address Organization Details Recorded Time 05/26/2025 text/html Patient presents for ultrasound follow up for PCOS, however had a positive test last night and this morning. Mild nausea, overall feeling well. Labs wnl for PCOS, prediabetic. Would like serial quant hCGs. Lynsey edwards, [facility] 05/26/2025 13:46:00 06/19/2025 text/html Presents to the office today to confirm . Patient denies any problems up to this point with her . Patient denies cramping or vaginal bleeding. G1: 37 week induction for gHTN, ; hx of GDM Hx of PCOS Patient is to [place]. Lives with partner and son. Patient works remotely. Denies tobacco/EtOH/ill icits. YESSENIA SOFIA MD [address], [place], [address], [facility] 06/19/2025 17:12:56 OBGyn Episode Ob Episode Information Episode Created Date Number of Fetuses Patient Bloodtype Patient rh Status Prepregnancy Weight lbs Domestic Partner Domestic Partner Phone Father Name Gear Technician Status 05/25/20 20 1 CLOSED Fetus Data First Name Last Name Admitted to NICU Weight (g) Sex Living Outcome Pediatric Complications Fetus ID Race Codes Race Delivery Type 2721.55 2 [id number] Vaginal Delivery Roberto Carlos Calculation Initial Roberto Carlos Date Initial Exam Date Initial Exam Provider Initial Ultrasound Date Last Menstrual Period Date Ultra Sound Weeks Gestation 0 Eighteen To Twenty Week Roberto Carlos Update Ultra Sound Date Fundal Height At Umbil Quickening Date Ultra Sound Latest Weeks Gestation Final Roberto Carlos Confirmed By Final Roberto Carlos Confirmed Date Final Roberto Carlos Date Ultra Sound Latest Days Gestation 0 0 Menstrual History Last Menstrual Date Menses Monthly On Bcp Conception Prior Menses Frequency Hcg Plus Date Menarche Onset Age Delivery Information Delivery Date Delivery Type Labor Anesthesia Weeks Gestation Incision Type Labor Labor Length Hrs Delivered By Post Complications Tubal Sterilization Discharge Date Comments 7 37 Discharge Information Feeding Method Contraceptive Method Maternal HG B and HCT Levels
[2025-07-20] MEDS: RHO(D) IMMUNE GLOBULIN 300 MCG/2 ML SYRINGE IM (13:08)
[2025-07-20 13:10] VITALS: BP 120/63; PULSE 94; RESP 16; O2SAT 97
== END 2025-07-20 13:10 | disposition home or self-care (01) ==
PROVIDERS: Emergency Provider Emergency Medicine; PCP Family Medicine
DX: O20.0 Threatened abortion (principal); O99.281 Endocrine, nutritional and metabolic diseases complicating pregnancy, first trimester; E03.9 Hypothyroidism, unspecified; E78.5 Hyperlipidemia, unspecified; Z3A.11 11 weeks gestation of pregnancy
CPT/HCPCS: 36415; 76801; 80053; 81001; 84702; 85025; 85461; 85610; 85730; 86850; 86900; 86901; 90384; 96372; 99284; J2790